=== PATIENT | male | born 1945 | race Caucasian/White ===

== ENCOUNTER 2018-11-16 15:33 | Emergency (ER) | payer MEDICARE, MEDICAID ==
--- NOTE | 2018-11-16 18:21 | ER Document Report ---
ED Medical Screen (RME) - General Chief Complaint: Palpitations Stated Complaint: HEARTRATE ISSUE, SHORTNESS OF BREATH Time Seen by Provider: 11/16/18 18:06 TRAVEL OUTSIDE OF THE [place] IN LAST 30 DAYS: No - Related Data Allergies/Adverse Reactions: No Known Allergies Allergy (Verified 11/16/18 15:35) Past Medical History - Social History Chew tobacco use (# tins/day): No Frequency of alcohol use: None Drug Abuse: None Renal/ Medical History: Denies: Hx Peritoneal Dialysis Physical Exam - Vital signs Vitals: Temp Pulse Resp BP Pulse Ox 97.8 F 92 20 134/70 H 93 11/16/18 15:54 11/16/18 15:54 11/16/18 15:54 11/16/18 15:54 11/16/18 15:54 Course - Re-evaluation Re-evalutation: 11/16/18 18:21 73-year-old man who presents with history of COPD persistent cough and some chest tightness which is worsened over the last 2 days. I have seen and evaluated this patient in rapid medical exam. They will require reassessment potentially further diagnostics and a disposition determination from a secondary provider. - Vital Signs Vital signs: Temp Pulse Resp BP Pulse Ox 97.8 F 92 19 154/89 H 94 11/16/18 15:54 11/16/18 15:54 11/16/18 20:01 11/16/18 20:01 11/16/18 20:01 - Laboratory Result Diagrams: 11/16/18 18:24 11/16/18 18:24 Laboratory results interpreted by me: 11/16/18 11/16/18 18:24 18:24 WBC 14.6 H Seg Neutrophils % 78.6 H Absolute Neutrophils 11.5 H AST 13 L ALT 14 L Creatine Kinase 32 L Doctor's Discharge - Discharge Clinical Impression: COPD (chronic obstructive pulmonary disease), Shortness of breath on exertion, Dependence on supplemental oxygen Condition: Stable Disposition: HOME, SELF-CARE Additional Instructions: You were seen for a COPD exacerbation. As we discussed, you need to begin wearing oxygen 3 L at all times. However, it is very important that you return to the emergency department immediately if you began to have worsening difficulty breathing that does not respond to your normal home nebulizers. You are also being sent home on a five-day course of steroids that you should start taking tomorrow. Please also follow closely with your primary care physician. You should eturn to emergency department if you develop fever greater than 101, persistent cough, persistent vomiting, pass out, or any other symptoms that are concerning to you. Prescriptions: Prednisone [Deltasone 20 mg Tablet] 2 tab PO DAILY 5 Days tablet
[2018-11-16 18:33] LABS: ABSOLUTE EOSINOPHILS # (AUTO) 0.2 10^3/uL (0.0-0.6); ABSOLUTE LYMPHOCYTES (AUTO) 2.2 10^3/uL (0.5-4.7); ABSOLUTE MONOCYTES (AUTO) 0.7 10^3/uL (0.1-1.4); ABSOLUTE NEUT (AUTO) 11.5 10^3/uL (1.7-8.2); BASOPHILS % (AUTO) 0.2 % (0-2); EOSINOPHILS % (AUTO) 1.4 % (0-6); LYMPHOCYTES % (AUTO) 14.7 % (13-45); MEAN CORPUSCULAR HEMOGLOBIN 29.5 pg (27.0-33.4); MEAN CORPUSCULAR VOLUME 87 fl (80-97); MONOCYTES % (AUTO) 5.1 % (3-13); PLATELET COUNT 233 10^3/uL (150-450); RED BLOOD COUNT 5.06 10^6/uL (4.35-5.55); RED CELL DISTRIBUTION WIDTH 13.5 % (11.5-14.0); SEGMENTED NEUTROPHILS % (AUTO) 78.6 % (42-78); TOTAL CELLS COUNTED % (AUTO) 100 %; WHITE BLOOD COUNT 14.6 10^3/uL (4.0-10.5)
[2018-11-16 18:50] LABS: ALANINE AMINOTRANSFERASE 14 U/L (21-72); ALBUMIN 4.4 g/dL (3.5-5.0); ALKALINE PHOSPHATASE 95 U/L (38-126); ANION GAP 13 (5-19); ASPARTATE AMINO TRANSFERASE 13 U/L (17-59); BILIRUBIN,DIRECT 0.3 mg/dL (0.0-0.4); BILIRUBIN,TOTAL 0.8 mg/dL (0.2-1.3); BLOOD UREA NITROGEN 16 mg/dL (7-20); CALCIUM 9.7 mg/dL (8.4-10.2); CARBON DIOXIDE 25 mmol/L (22-30); CHLORIDE 105 mmol/L (98-107); CREATINE KINASE 32 U/L (55-170); GLUCOSE 101 mg/dL (75-110); POTASSIUM 4.7 mmol/L (3.6-5.0); SODIUM 142.6 mmol/L (137-145); TOTAL PROTEIN 7.2 g/dL (6.3-8.2)
--- NOTE | 2018-11-16 18:58 | RADIOLOGY REPORT (SQ) ---
EXAM DESCRIPTION: CHEST SINGLE VIEW COMPLETED DATE/TIME: 11/16/2018 6:33 pm REASON FOR STUDY: cough COMPARISON: None. EXAM PARAMETERS: NUMBER OF VIEWS: One view. TECHNIQUE: Single frontal radiographic view of the chest acquired. RADIATION DOSE: NA LIMITATIONS: None. FINDINGS: LUNGS AND PLEURA: No pneumothorax. Coarse interstitial markings throughout both lungs wit h medial basilar predominance. No dense consolidation. No pleural effusion. MEDIASTINUM AND HILAR STRUCTURES: Calcified lymph nodes. Contour age-appropriate. HEART AND VASCULAR STRUCTURES: Heart normal in size. Normal vasculature. BONES: No acute findings. HARDWARE: None in the chest. OTHER: No other significant finding. IMPRESSION: Coarse interstitial markings throughout both lungs with medial basilar predominance, lik jack chronic. No dense consolidation. No pleural effusion. TECHNICAL DOCUMENTATION: JOB ID: [id number] 2010 [employer]- All Rights Reserved Reading location - IP/workstation name: [email or web address]
[2018-11-16 19:02] LABS: CREATINE KINASE MB 1.36 ng/mL (<4.55); TROPONIN I < 0.012 ng/mL
[2018-11-16 19:06] LABS: A TYPE INFLUENZA AG NEGATIVE (NEGATIVE); B INFLUENZA AG NEGATIVE (NEGATIVE)
[2018-11-16] MEDS ORDERED: RINGERS SOLUTION,LACTATED 1,000 ML IV ONE (20:34)
[2018-11-16] MEDS ORDERED: PREDNISONE 20 MG TABLET PO ONE (20:34)
[2018-11-16] MEDS ORDERED: IPRATROPIUM/ALBUTEROL 0.5-2.5 MG/3 ML AMPUL NEB ONE (20:35)
--- NOTE | 2018-11-16 20:40 | ER Document Report ---
ED General - General Chief Complaint: Palpitations Stated Complaint: HEARTRATE ISSUE, SHORTNESS OF BREATH Time Seen by Provider: 11/16/18 18:06 Notes: Patient is a 73-year-old male with a past medical history of COPD with nighttime oxygen dependence, hypertension, presents with several months of progressively worsening shortness of breath with exertion that has become much more pronounced over the past several weeks. The patient states that he became concerned today when he fell he became extremely winded when just walking to the restroom and back. He does not normally use oxygen during the day. States that he checked his heart rate after getting back to the couch and found it to be 107 prompting him to come to the emergency department. He does not have a local primary care doctor as he normally resides in [place]. He denies any associated chest pain, syncope, or hemoptysis. Nothing seems to improve his symptoms. He has been taking all prescribed medications as directed. TRAVEL OUTSIDE OF THE [place] IN LAST 30 DAYS: No - Related Data Allergies/Adverse Reactions: No Known Allergies Allergy (Verified 11/16/18 15:35) Past Medical History - General Information source: Patient, Relative - Social History Smoking Status: Former Smoker Chew tobacco use (# tins/day): No Frequency of alcohol use: None Drug Abuse: None Lives with: Family Family History: Reviewed & Not Pertinent Patient has suicidal ideation: No Patient has homicidal ideation: No Renal/ Medical History: Denies: Hx Peritoneal Dialysis Review of Systems - Review of Systems Notes: Constitutional: Negative for fever. HENT: Negative for sore throat. Eyes: Negative for visual changes. Cardiovascular: Negative for chest pain. Respiratory: Positive for shortness of breath. Gastrointestinal: Negative for abdominal pain, vomiting or diarrhea. Genitourinary: Negative for dysuria. Musculoskeletal: Negative for back pain. Skin: Negative for rash. Neurological: Negative for headaches, weakness or numbness. 10 point ROS negative except as marked above and in HPI. Physical Exam - Vital signs Vitals: Temp Pulse Resp BP Pulse Ox 97.8 F 92 20 134/70 H 93 11/16/18 15:54 11/16/18 15:54 11/16/18 15:54 11/16/18 15:54 11/16/18 15:54 Interpretation: Normal Notes: PHYSICAL EXAMINATION: GENERAL: Appears stated age, no acute distress HEAD: Atraumatic, normocephalic. EYES: Pupils equal round and reactive to light, extraocular movements intact, sclera anicteric, conjunctiva are normal. ENT: nares patent, oropharynx clear without exudates. Moist mucous membranes. NECK: Normal range of motion, supple without lymphadenopathy LUNGS: Breath sounds clear to auscultation bilaterally and equal. Scattered wheezing in all lung manuel. HEART: Regular rate and rhythm without murmurs ABDOMEN: Soft, nontender, normoactive bowel sounds. No guarding, no rebound. No masses appreciated. EXTREMITIES: Normal range of motion, no pitting or edema. No cyanosis. NEUROLOGICAL: No focal neurological deficits. Moves all extremities spontaneously and on command. PSYCH: Normal mood, normal affect. SKIN: Warm, Dry, normal turgor, no rashes or lesions noted. Course - Re-evaluation Re-evalutation: 11/16/18 20:35 Patient presents with 6 months of progressively worsening exertional intolerance worse in the last 1 month. Patient's main concern today was that his heart rate was high on a home pulse monitor after walking approximately 20 feet to use the restroom. Patient states just walking that short of a distance had some extremely fatigued, feeling short of breath and often raises his heart rate substantially. Patient does report that this is been ongoing for at least 6 months but has been getting much worse over the last 6 weeks. Nothing is substantially different today other than that he had checked his heart rate and noticed that when it was higher after exerting himself. The patient does n ormally use 2 L of oxygen at nighttime although here in the emergency department sitting in the bed with a good read on pulse oximetry the patient is 87-88% while sitting in the bed not doing anything. When the patient sits up in the bed to adjust himself for long examination he becomes visibly more tachypneic even with that mild exertion on room air. When I placed the patient on 3 L of nasal cannula the symptoms did resolve and patient's mild tachycardia of approximately 101 did likewise resolved. I suspect that the patient has more advanced COPD than he realized, and likely requires oxygen at all times at this point in his disease course. Patient and his son likewise agree stating that his symptoms are chronic in nature but he is currently new to the area and they did not have an alternative source of care today. The patient does have very mild wheezing at time of presentation. No retractions. Chest x-ray without evidence of an acute pneumonia, does show chronic changes. Laboratories do not show acute kidney injury or significant leukocytosis. Based on patient's overall reassuring assessment, I believe they are stable for outpatient management with steroids and have also advised him to begin wearing oxygen at all times. Patient has nebulizers at home. I do not suspect an acute alternative pathology at this time based on history and exam including acute pulmonary embolus, ACS, pneumothorax, or aortic dissection. I have advised the patient and his son that I do suspect that his illness has progressed significantly over the past 1 year but that I do not see an immediate indication for hospitalization. At this time will discharge with return precautions and follow-up recommendations. Verbal discharge instructions given a the bedside and opportunity for questions given. Medication warnings reviewed. Patient is in agreement with this plan and has verbalized understanding of return precautions and the need for primary care follow-up in the next 24-72 hours. \ - Vital Signs Vital signs: Temp Pulse Resp BP Pulse Ox 98.1 F 92 20 173/92 H 91 L 11/16/18 21:50 11/16/18 15:54 11/16/18 21:42 11/16/18 21:42 11/16/18 21:42 - Laboratory Result Diagrams: 11/16/18 18:24 11/16/18 18:24 Laboratory results interpreted by me: 11/16/18 11/16/18 18:24 18:24 WBC 14.6 H Seg Neutrophils % 78.6 H Absolute Neutrophils 11.5 H AST 13 L ALT 14 L Creatine Kinase 32 L - Diagnostic Test Radiology reviewed: Image reviewed, Reports reviewed Radiology results interpreted by me: 11/16/18 20:38 Chest x-ray: Chronic interstitial changes - EKG Interpretation by Me Additional EKG results interpreted by me: 11/16/18 20:38 Sinus rhythm, rate 94. Intermittent PVCs. No ST elevations or depressions. QTC 496. Discharge - Discharge Clinical Impression: Shortness of breath on exertion, Dependence on supplemental oxygen COPD (chronic obstructive pulmonary disease) Qualifiers: COPD type: unspecified COPD Qualified Code(s): J44.9 - Chronic obstructive pulmonary disease, unspecified Condition: Stable Disposition: HOME, SELF-CARE Additional Instructions: You were seen for a COPD exacerbation. As we discussed, you need to begin wearing oxygen 3 L at all times. However, it is very important that you return to the emergency department immediately if you began to have worsening diff iculty breathing that does not respond to your normal home nebulizers. You are also being sent home on a five-day course of steroids that you should start taking tomorrow. Please also follow closely with your primary care physician. You should eturn to emergency department if you develop fever greater than 101, persistent cough, persistent vomiting, pass out, or any other symptoms that are concerning to you. Prescriptions: Prednisone [Deltasone 20 mg Tablet] 2 tab PO DAILY 5 Days tablet
[2018-11-16 21:50] VITALS: BP 173/92
--- NOTE | 2018-11-17 08:20 | EKG REPORT ---
SEVERITY:- ABNORMAL ECG - SINUS RHYTHM VENTRICULAR PREMATURE COMPLEX RBBB AND LPFB : Confirmed by: Ava Pang MD 17-Nov-2018 08:19:53
== END 2018-11-16 21:51 | disposition home or self-care (01) ==
LOC: ER 15:33
DX: R00.2 Palpitations (principal); R06.02 Shortness of breath; J44.9 Chronic obstructive pulmonary disease, unspecified; Z99.81 Dependence on supplemental oxygen
CPT/HCPCS: 93005; 94640; 99285; 96360; 36415; 82553; 82550; 85025; 80053; 84484; 87804; 71045; 93010; A9270 ×2; J7120; J7512; J7620

== ENCOUNTER → 2018-11-24 | Outpatient (CLI) | payer MEDICARE, MEDICAID ==
--- NOTE | 2018-11-24 14:57 | RADIOLOGY REPORT (SQ) ---
EXAM DESCRIPTION: CHEST 2 VIEWS COMPLETED DATE/TIME: 11/24/2018 2:24 pm REASON FOR STUDY: R06.02 SHORTNESS OF BREATH COMPARISON: 11/16/2018 EXAM PARAMETERS: NUMBER OF VIEWS: two views TECHNIQUE: Digital Frontal and Lateral radiographic views of the chest acquired. RADIATION DOSE: NA LIMITATIONS: none FINDINGS: LUNGS AND PLEURA: Pulmonary fibrosis. No acute infiltrate or pleural effusion. No mass. MEDIASTINUM AND HILAR STRUCTURES: No masses or contour abnormalities. HEART AND VASCULAR STRUCTURES: Heart normal size. No evidence for failure. BONES: No acute findings. HARDWARE: None in the chest. OTHER: No other significant finding. IMPRESSION: Pulmonary fibrosis. TECHNICAL DOCUMENTATION: JOB ID: [id number] [employer]- All Rights Reserved Reading location - IP/workstation name: [email or web address]
== END ==
LOC: RAD 14:06
PROVIDERS: ATTEND Internal Medicine
DX: J84.10 Pulmonary fibrosis, unspecified (principal); R06.02 Shortness of breath; R09.89 Other specified symptoms and signs involving the circulatory and respiratory systems
CPT/HCPCS: 71046

== ENCOUNTER 2020-01-28 17:03 | Emergency (ER) | payer OTHER, MEDICAID ==
[2020-01-28 17:33] LABS: ABSOLUTE LYMPHOCYTES (AUTO) 1.1 10^3/uL (0.5-4.7); ABSOLUTE MONOCYTES (AUTO) 0.6 10^3/uL (0.1-1.4); ABSOLUTE NEUT (AUTO) 8.3 10^3/uL (1.7-8.2); BASOPHILS % (AUTO) 0.1 % (0-2); EOSINOPHILS % (AUTO) 0.1 % (0-6); HEMATOCRIT 50.6 % (37.9-51.0); HEMOGLOBIN 16.4 g/dL (13.5-17.0); LYMPHOCYTES % (AUTO) 10.5 % (13-45); MEAN CORPUSCULAR HEMOGLOBIN 28.3 pg (27.0-33.4); MEAN CORPUSCULAR HGB CONC 32.3 g/dL (32.0-36.0); MEAN CORPUSCULAR VOLUME 87 fl (80-97); MONOCYTES % (AUTO) 6.2 % (3-13); PLATELET COUNT 186 10^3/uL (150-450); RED CELL DISTRIBUTION WIDTH 17.1 % (11.5-14.0); SEGMENTED NEUTROPHILS % (AUTO) 83.1 % (42-78); TOTAL CELLS COUNTED % (AUTO) 100 %
[2020-01-28 17:45] LABS: PROTHROMBIN TIME 13.2 SEC (11.4-15.4)
[2020-01-28 17:50] LABS: ALBUMIN 4.9 g/dL (3.5-5.0); ALKALINE PHOSPHATASE 114 U/L (38-126); ANION GAP 17 (5-19); ASPARTATE AMINO TRANSFERASE 31 U/L (17-59); BILIRUBIN,DIRECT 0.5 mg/dL (0.0-0.4); BILIRUBIN,TOTAL 0.9 mg/dL (0.2-1.3); BLOOD UREA NITROGEN 23 mg/dL (7-20); CALCIUM 9.6 mg/dL (8.4-10.2); CARBON DIOXIDE 22 mmol/L (22-30); CHLORIDE 102 mmol/L (98-107); GLUCOSE 102 mg/dL (75-110); POTASSIUM 5.1 mmol/L (3.6-5.0); TOTAL PROTEIN 8.6 g/dL (6.3-8.2)
--- NOTE | 2020-01-28 18:17 | RADIOLOGY REPORT (SQ) ---
EXAM DESCRIPTION: CHEST SINGLE VIEW COMPLETED DATE/TIME: 01/28/2020 5:54 pm REASON FOR STUDY: SOB COMPARISON: 11/24/2018 EXAM PARAMETERS: NUMBER OF VIEWS: One view. TECHNIQUE: Single frontal radiographic view of the chest acquired. RADIATION DOSE: NA LIMITATIONS: None. FINDINGS: LUNGS AND PLEURA: Chronic pulmonary fibrosis. No acute infiltrate. No pleural effusion. No mass is appreciated. MEDIASTINUM AND HILAR STRUCTURES: No masses. Contour normal. HEART AND VASCULAR STRUCTURES: Heart normal in size. Normal vasculature. BONES: No acute findings. HARDWARE: None in the chest. OTHER: No other significant finding. IMPRESSION: Pulmonary fibrosis. No acute finding. TECHNICAL DOCUMENTATION: JOB ID: [id number] 2010 [employer]- All Rights Reserved Reading location - IP/workstation name: [email or web address]
[2020-01-28 18:25] LABS: VENOUS BLOOD BASE EXCESS -2.4 mmol/L; VENOUS BLOOD HCO3 23.5 mmol/L (20-32); VENOUS BLOOD PCO2 44.3 mmHg (35-63); VENOUS BLOOD PH 7.34 (7.30-7.42)
[2020-01-28 18:56] LABS: A TYPE INFLUENZA AG NEGATIVE (NEGATIVE); B INFLUENZA AG NEGATIVE (NEGATIVE)
[2020-01-28] MEDS ORDERED: METHYLPREDNISOLONE INJ 125 MG/2 ML SDV IV ONE (20:37)
[2020-01-28] MEDS ORDERED: CEFTRIAXONE 1 GM/D5W RTU 1 GM/50 ML RTUPB IV ONE (20:37)
[2020-01-28] MEDS ORDERED: ACETAMINOPHEN 325 MG TABLET PO ONE (21:21)
[2020-01-28 21:34] LABS: APPEARANCE,URINE CLEAR; BILIRUBIN,URINE NEGATIVE (NEGATIVE); COLOR,URINE YELLOW; GLUCOSE, URINE NEGATIVE (NEGATIVE); KETONES,URINE 20 mg/dL (NEGATIVE); PROTEIN,URINE 30 mg/dL (NEGATIVE); URINE SPECIFIC GRAVITY 1.012; UROBILINOGEN,URINE NEGATIVE mg/dL (<2.0)
--- NOTE | 2020-01-28 21:47 | EKG REPORT ---
SEVERITY:- ABNORMAL ECG - SINUS RHYTHM RBBB AND LPFB ST DEPRESSION, CONSIDER ISCHEMIA, DIFFUSE LDS : Confirmed by: Ava Pang MD 28-Jan-2020 21:46:14
--- NOTE | 2020-01-28 22:48 | ER Document Report ---
Entered by RICKY MANCIA SCRIBE 01/28/202128 Acting as scribe for:TING SUAZO DO ED General - General Chief Complaint: Shortness Of Breath Stated Complaint: RESPIRATORY DISTRESS Time Seen by Provider: 01/28/20 19:38 Primary Care Provider: DUNCAN AYALA MD [ACTIVE STAFF] - Follow up as needed ЕКАТЕРИНА RIGGS MD [Primary Care Provider] - Follow up as needed Information source: Patient Notes: This 75-year-old male with a history of COPD and diabetes presents to the emergency department complaining of increased shortness of breath that began 2-3 days ago. Patient lives alone and has noticed a difficulty in walking around his home. Patient reports feeling "achy" for the past week and headache. Patient denies fever, nausea, vomiting and chest pain. Patient denies sick contact. Patient is on oxygen at home 06/06. TRAVEL OUTSIDE OF THE [place] IN LAST 30 DAYS: No - Related Data Allergies/Adverse Reactions: No Known Allergies Allergy (Verified 11/16/18 15:35) Past Medical History - General Information source: Patient - Social History Smoking Status: Former Smoker Cigarette use (# per day): No Chew tobacco use (# tins/day): No Drug Abuse: Marijuana Lives with: Alone Family History: Reviewed & Not Pertinent Patient has suicidal ideation: No Patient has homicidal ideation: No Pulmonary Medical History: Reports: Hx COPD Endocrine Medical History: Reports: Hx Diabetes Mellitus Type 1 Surgical Hx: Negative Review of Systems - Review of Systems Constitutional: See HPI. denies: Fever EENT: No symptoms reported Cardiovascular: See HPI. denies: Chest pain Respiratory: See HPI, Short of breath Gastrointestinal: See HPI. denies: Nausea, Vomiting Genitourinary: No symptoms reported Male Genitourinary: No symptoms reported Musculoskeletal: See HPI, Muscle pain Skin: No symptoms reported Hematologic/Lymphatic: No symptoms reported Neurological/Psychological: See HPI, Headaches -: Yes All other systems reviewed and negative Physical Exam - Vital signs Vitals: Pulse Ox 96 01/28/20 17:04 - Notes Notes: Physical Exam: General: Alert, appears stated age. HEENT: Normocephalic. Atraumatic. PERRL. Extraocular movements intact. Oropharynx clear. Neck: Supple. Non-tender. Respiratory: No respiratory distress. Diminished breath sounds bilaterally. No r honchi, rales or wheezing. Cardiovascular: Regular rate and rhythm. Abdominal: Non-tender. No distension. Normal Bowel Sounds. Obese. Back: No gross abnormalities. Extremities: Moves all four extremities. Upper extremities: Normal inspection. Normal ROM. Lower extremities: Normal inspection. No edema. Normal ROM. Neurological: Normal cognition. AAOx4. Normal speech. Psychological: Normal affect. Normal Mood. Skin: Warm. Dry. Normal color. Course - Re-evaluation Re-evalutation: 01/28/20 22:42 MDM Elderly male lives alone but has friends nearby is here with SOB with exertion that is better here. He has known COPD and Xrays are suggestive of Pulmonary fibrosis. He has never before today reportedly heard of that. I discussed with him that pulmonary fibrosis is a restrictive lung disease that usually has progressive disease. He will need to see his primary doctor regarding this and perhaps a pulmonary doctor. We also discussed return precautions which include calling EMS for shortness of breath or chest pain and he expressed understanding. While I have considered other causes of his dyspnea including pe and cap and covid I see no evidence of this for the following thoughts. No tachynpnea or tachycardia or h/o hypercoaguable state, also fever free and no elevated WBC count. He does tell me he feels better here. Clearly the EKG is not normal but without evidence of change or ischemia on my view. Once he is over the exacerbation I feel he should see the cardiology team in follow up. He expressed understanding regarding this. - Vital Signs Vital signs: Temp Pulse Resp BP Pulse Ox 97.9 F 16 173/109 H 93 01/28/20 21:07 01/28/20 19:01 01/28/20 19:00 01/28/20 19:01 - Laboratory Result Diagrams: 01/28/20 17:15 01/28/20 17:15 Laboratory results interpreted by me: 01/28/20 01/28/20 01/28/20 17:15 17:15 21:15 RBC 5.80 H RDW 17.1 H Lymph % (Auto) 10.5 L Absolute Neuts (auto) 8.3 H Seg Neutrophils % 83.1 H Potassium 5.1 H BUN 23 H Est GFR (MDRD) Non-Af 56 L Direct Bilirubin 0.5 H ALT 54 H Total Protein 8.6 H Urine Protein 30 H Urine Ketones 20 H - Diagnostic Test Radiology reviewed: Image reviewed, Reports reviewed - EKG Interpretation by Me EKG shows normal: Sinus rhythm Rhythm: NSR [place]/QRS: RBBB, LAHB/LAFB - NSR RBBB 84 BPM repolarization abnormality. no st elevation or depression my interpretation. When compared to previous EKG there are: No significant change Discharge - Discharge Clinical Impression: COPD with exacerbation, Pulmonary fibrosis Chronic respiratory failure Qualifiers: Respiratory failure complication: hypoxia Qualified Code(s): J96.11 - Chronic respiratory failure with hypoxia Condition: Fair Disposition: HOME, SELF-CARE Instructions: Chronic Obstructive Lung Disease ([facility]), Cough Suppressant & Expectorant Medications, Dyspnea, Nonspecific ([facility]) Additional Instructions: Call your doctor tomorrow for follow up. Rest. Return here for increasing shortness of breath, chest pain or other problems or concerns. Take your medic ine as directed. Forms: Elevated Blood Pressure Referrals: ЕКАТЕРИНА RIGGS MD [Primary Care Provider] - Follow up as needed DUNCAN AYALA MD [ACTIVE STAFF] - Follow up as needed I personally performed the services described in the documentation, reviewed and edited the documentation which was dictated to the scribe in my presence, and it accurately records my words and actions.
[2020-01-29 00:14] VITALS: BP 161/102
== END 2020-01-29 00:10 | disposition home or self-care (01) ==
LOC: ER 17:03
DX: J44.1 Chronic obstructive pulmonary disease with (acute) exacerbation (principal); J96.11 Chronic respiratory failure with hypoxia; J84.10 Pulmonary fibrosis, unspecified; R51 Headache; I45.2 Bifascicular block; E10.9 Type 1 diabetes mellitus without complications; Z99.81 Dependence on supplemental oxygen; F12.10 Cannabis abuse, uncomplicated; Z87.891 Personal history of nicotine dependence
CPT/HCPCS: 93005; 99285; 96375; 96365; 36415; 87040; 83605; 85025; 85610; 87077; 80053; 81001; 84484; 82803; 87804; 71045; 93010; J2930; J0696; 87186

== ENCOUNTER 2020-03-05 10:20 | Emergency (ER) | payer MEDICARE, MEDICAID ==
[2020-03-05 10:48] LABS: ABSOLUTE BASOPHILS # (AUTO) 0.1 10^3/uL (0.0-0.2); ABSOLUTE EOSINOPHILS # (AUTO) 0.2 10^3/uL (0.0-0.6); ABSOLUTE LYMPHOCYTES (AUTO) 1.7 10^3/uL (0.5-4.7); ABSOLUTE MONOCYTES (AUTO) 0.5 10^3/uL (0.1-1.4); ABSOLUTE NEUT (AUTO) 7.8 10^3/uL (1.7-8.2); BASOPHILS % (AUTO) 0.5 % (0-2); EOSINOPHILS % (AUTO) 2.2 % (0-6); HEMATOCRIT 50.4 % (37.9-51.0); HEMOGLOBIN 16.3 g/dL (13.5-17.0); LYMPHOCYTES % (AUTO) 16.2 % (13-45); MEAN CORPUSCULAR HEMOGLOBIN 27.7 pg (27.0-33.4); MEAN CORPUSCULAR HGB CONC 32.4 g/dL (32.0-36.0); MEAN CORPUSCULAR VOLUME 85 fl (80-97); MONOCYTES % (AUTO) 4.9 % (3-13); PLATELET COUNT 259 10^3/uL (150-450); RED BLOOD COUNT 5.91 10^6/uL (4.35-5.55); RED CELL DISTRIBUTION WIDTH 16.3 % (11.5-14.0); SEGMENTED NEUTROPHILS % (AUTO) 76.2 % (42-78); TOTAL CELLS COUNTED % (AUTO) 100 %; WHITE BLOOD COUNT 10.3 10^3/uL (4.0-10.5)
[2020-03-05 11:06] LABS: ALBUMIN 4.7 g/dL (3.5-5.0); ALKALINE PHOSPHATASE 135 U/L (38-126); ANION GAP 8 (5-19); ASPARTATE AMINO TRANSFERASE 19 U/L (17-59); BILIRUBIN,TOTAL 0.7 mg/dL (0.2-1.3); BLOOD UREA NITROGEN 20 mg/dL (7-20); CALCIUM 9.8 mg/dL (8.4-10.2); CARBON DIOXIDE 29 mmol/L (22-30); CHLORIDE 102 mmol/L (98-107); GLUCOSE 109 mg/dL (75-110); TOTAL PROTEIN 8.3 g/dL (6.3-8.2)
[2020-03-05] MEDS ORDERED: CEFTRIAXONE INJ 1000 MG VIAL IV ONE (11:36)
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
--- NOTE | 2020-03-05 11:40 | RADIOLOGY REPORT (SQ) ---
EXAM DESCRIPTION: CHEST SINGLE VIEW IMAGES COMPLETED DATE/TIME: 03/05/2020 11:26 am REASON FOR STUDY: hypoxic COMPARISON: 01/28/2020 EXAM PARAMETERS: NUMBER OF VIEWS: One view. TECHNIQUE: Single frontal radiographic view of the chest acquired. RADIATION DOSE: NA LIMITATIONS: None. FINDINGS: LUNGS AND PLEURA: Grossly stable bilateral peripheral predominant interstitial opacities a nd fibrosis. Nodes definitive superimposed airspace disease. Unchanged elevation of the right hemid iaphragm. No pleural effusion or pneumothorax. MEDIASTINUM AND HILAR STRUCTURES: Stable. HEART AND VASCULAR STRUCTURES: Borderline enlarged, stable. Vascular calcifications. BONES: No acute findings. HARDWARE: None in the chest. OTHER: No other significant finding. IMPRESSION: Grossly stable bilateral pulmonary fibrosis and scarring. No definitive superimposed ai rspace disease. TECHNICAL DOCUMENTATION: JOB ID: [id number] 2010 [employer]- All Rights Reserved Reading location - IP/workstation name: [email or web address]
[2020-03-05 13:06] VITALS: BP 175/133
--- NOTE | 2020-03-05 18:43 | EKG REPORT ---
SEVERITY:- ABNORMAL ECG - SINUS TACHYCARDIA MULTIPLE ATRIAL PREMATURE COMPLEXES PROBABLE LEFT ATRIAL ABNORMALITY RBBB AND LPFB ST DEPRESSION, CONSIDER ISCHEMIA, : Confirmed by: Teresa Lam 05-Mar-2020 18:43:01
== END 2020-03-05 13:06 | disposition home or self-care (01) ==
LOC: ER 10:20
DX: T20.20XA Burn of second degree of head, face, and neck, unspecified site, initial encounter (principal); R06.02 Shortness of breath; R51 Headache; R09.89 Other specified symptoms and signs involving the circulatory and respiratory systems; R04.0 Epistaxis; R22.0 Localized swelling, mass and lump, head; X08.8XXA Exposure to other specified smoke, fire and flames, initial encounter; Z99.81 Dependence on supplemental oxygen; F17.210 Nicotine dependence, cigarettes, uncomplicated; E10.9 Type 1 diabetes mellitus without complications; Z79.84 Long term (current) use of oral hypoglycemic drugs; I10 Essential (primary) hypertension; J44.9 Chronic obstructive pulmonary disease, unspecified
CPT/HCPCS: 93005; 99284; 96374; 36415; 85025; 80053; 71045; 93010; J0696

== ENCOUNTER 2020-04-05 14:17 | Inpatient (IN) | payer MEDICARE, MEDICAID ==
[2020-04-05 14:32] LABS: VENOUS BLOOD BASE EXCESS -4.9 mmol/L; VENOUS BLOOD HCO3 20.7 mmol/L (20-32); VENOUS BLOOD PCO2 40.6 mmHg (35-63); VENOUS BLOOD PH 7.33 (7.30-7.42)
[2020-04-05 14:34] LABS: ABSOLUTE EOSINOPHILS # (AUTO) 0.1 10^3/uL (0.0-0.6); ABSOLUTE LYMPHOCYTES (AUTO) 1.3 10^3/uL (0.5-4.7); ABSOLUTE MONOCYTES (AUTO) 0.3 10^3/uL (0.1-1.4); ABSOLUTE NEUT (AUTO) 4.1 10^3/uL (1.7-8.2); BASOPHILS % (AUTO) 0.2 % (0-2); HEMATOCRIT 39.5 % (37.9-51.0); HEMOGLOBIN 12.8 g/dL (13.5-17.0); LYMPHOCYTES % (AUTO) 21.7 % (13-45); MEAN CORPUSCULAR HEMOGLOBIN 27.8 pg (27.0-33.4); MEAN CORPUSCULAR HGB CONC 32.3 g/dL (32.0-36.0); MEAN CORPUSCULAR VOLUME 86 fl (80-97); MONOCYTES % (AUTO) 5.6 % (3-13); PLATELET COUNT 118 10^3/uL (150-450); RED BLOOD COUNT 4.59 10^6/uL (4.35-5.55); RED CELL DISTRIBUTION WIDTH 17.7 % (11.5-14.0); SEGMENTED NEUTROPHILS % (AUTO) 70.5 % (42-78); TOTAL CELLS COUNTED % (AUTO) 100 %; WHITE BLOOD COUNT 5.8 10^3/uL (4.0-10.5)
[2020-04-05 14:38] LABS: INTERNATIONAL RATION (INR) 1.05; PROTHROMBIN TIME 13.7 SEC (11.4-15.4)
[2020-04-05] MEDS ORDERED: IPRATROPIUM/ALBUTEROL 0.5-2.5 MG/3 ML AMPUL NEB ONE (14:38)
[2020-04-05] MEDS ORDERED: METHYLPREDNISOLONE INJ 125 MG/2 ML SDV IV ONE (14:38)
--- NOTE | 2020-04-05 14:48 | ER Document Report ---
ED General - General Chief Complaint: Syncope Stated Complaint: SYNCOPE, DIFFICULTY BREATHING Time Seen by Provider: 04/05/20 14:27 Primary Care Provider: ЕКАТЕРИНА RIGGS MD [Primary Care Provider] - Follow up as needed Notes: Patient is a 75-year-old male who presents to the emergency department with a chief complaint of shortness of breath. Patient states that he started have shortness of breath about 3 days ago. Today got progressively worse. Patient's home is being treated for bedbugs. He was at a hotel room and his shortness of breath got progressively worse. Patient has history of COPD and he is normally on 4 L of oxygen. Patient states that he did have his oxygen. Patient states that he felt like he could not move when he had difficulty breathing. Denies any loss of consciousness. TRAVEL OUTSIDE OF THE [place] IN LAST 30 DAYS: No - Related Data Allergies/Adverse Reactions: No Known Allergies Allergy (Verified 03/05/20 10:58) Past Medical History - Social History Smoking Status: Former Smoker Chew tobacco use (# tins/day): No Frequency of alcohol use: None Drug Abuse: None Family History: Reviewed & Not Pertinent Patient has homicidal ideation: No - Past Medical History Cardiac Medical History: Reports: Hx Hypercholesterolemia, Hx Hypertension Pulmonary Medical History: Reports: Hx COPD Endocrine Medical History: Reports: Hx Diabetes Mellitus Type 1 Renal/ Medical History: Denies: Hx Peritoneal Dialysis Psychiatric Medical History: Reports: Hx Depression Review of Systems - Review of Systems Notes: REVIEW OF SYSTEMS: CONSTITUTIONAL : Denies recent illness. Denies recent unintentional weight loss. Denies fever, chills, or sweats. EENT: Denies eye, ear, throat, or mouth pain, discharge, or symptoms. Denies nasal or sinus congestion. CARDIOVASCULAR: Denies chest pain. RESPIRATORY: See HPI. GASTROINTESTINAL: Denies nausea, vomiting, and diarrhea. Denies abdominal pain. Denies constipation. GENITOURINARY: Denies difficulty urinating, burning, blood in urine, urgency or frequency. MUSCULOSKELETAL: Denies neck and back pain. Denies joint pain or swelling. SKIN: Denies rash, itchiness, or lesions HEMATOLOGIC : Denies easy bruising or bleeding. LYMPHATIC: Denies swollen, painful, enlarged glands. NEUROLOGICAL: See HPI. PSYCHIATRIC: Denies stress, anxiety, alteration in sleep patterns, or depression. All other systems reviewed and negative. Physical Exam - Vital signs Vitals: Temp Resp BP Pulse Ox 97.6 F 20 139/81 H 81 L 04/05/20 14:16 04/05/20 14:16 04/05/20 14:16 04/05/20 14:16 Course - Re-evaluation Re-evalutation: 04/05/20 14:48 Patient's oxygen saturation was 78 on 6 L nasal cannula. I called Dr. Aparicio to bedside to evaluate the patient. We switch the patient to a nonrebreather and his oxygen saturation came back up to 96. Patient is not tachypneic. Once we are able to get his oxygen saturation up, we switched him back to his cannula at 5 L. DuoNeb, magnesium, and Solu-Medrol ordered. 04/05/20 15:45 Hematology does not show a leukocytosis, but his hemoglobin is slightly low at 12.8. Chemistry shows sodium 136.8. His CO2 is 20. BUN 21. Patient will be sent for CT of the chest to rule out pulmonary emboli. Lactic acid is 5.2. He received Rocephin and azithromycin for antibiotics. Oxygen saturation is now 91 to 92% on simple mask. 04/05/20 17:08 CTA of the chest shows end-stage COPD and possible pneumonia. I spoke with Dr. Knowles, the hospitalist. Discussed the patient's case and he will be evaluated by Dr. Knowles and he will decide what level of care patient will go to. 04/05/20 18:[address] Knowles, the hospitalist. Patient will be admitted to [facility]. He will first be tested for COVID-19 and then he will go up to the floor. - Vital Signs Vital signs: Temp Pulse Resp BP Pulse Ox 97.6 F 20 119/75 89 L 04/05/20 14:17 04/05/20 16:24 04/05/20 16:24 04/05/20 16:24 - Laboratory Result Diagrams: 04/05/20 14:20 04/05/20 14:20 Laboratory results interpreted by me: 04/05/20 04/05/20 04/05/20 14:20 14:20 14:20 Hgb 12.8 L RDW 17.7 H Plt Count 118 L ABG pO2 ABG Total CO2 ABG O2 Saturation Sodium 136.8 L Carbon Dioxide 20 L BUN 21 H Est GFR (MDRD) Non-Af 56 L Glucose 130 H Lactic Acid 5.2 H NT-Pro-B Natriuret Pep Total Protein 6.1 L 04/05/20 04/05/20 04/05/20 14:20 14:42 16:30 Hgb RDW Plt Count ABG pO2 70.9 L ABG Total CO2 21.1 L ABG O2 Saturation 93.7 L Sodium Carbon Dioxide BUN Est GFR (MDRD) Non-Af Glucose Lactic Acid 2.4 H NT-Pro-B Natriuret Pep 7020 H Total Protein Critical Care Note - Critical Care Note Comments: Critical care time spent obtaining history from patient or surrogate, discussions with consultants, development of treatment plan with patient or surrogate, evaluation of patient's response to treatment, examination of patient, ordering and performing treatments and interventions, ordering and review of laboratory studies, re-evaluation of patient's condition, ordering and review of radiographic studies and review of old charts Discharge - Discharge Clinical Impression: Shortness of breath, COPD exacerbation Pneumonia Qualifiers: Pneumonia type: due to unspecified organism Laterality: unspecified laterality Lung location: unspecified part of lung Qualified Code(s): J18.9 - Pneumonia, u nspecified organism Condition: Stable Disposition: ADMITTED INPATIENT Admitting Provider: Eleni (Hospitalist) Unit Admitted: IMCU Referrals: ЕКАТЕРИНА RIGGS MD [Primary Care Provider] - Follow up as needed
[2020-04-05] MEDS: MAGNESIUM SULFATE/D5W 1 GM/100 ML RTUPB IV SCH ×2 (14:53→16:00)
--- NOTE | 2020-04-05 14:58 | RADIOLOGY REPORT (SQ) ---
EXAM DESCRIPTION: CHEST SINGLE VIEW IMAGES COMPLETED DATE/TIME: 04/05/2020 2:48 pm REASON FOR STUDY: Shortness of breath, syncope COMPARISON: 03/05/2020 and 01/28/2020. EXAM PARAMETERS: NUMBER OF VIEWS: One view. TECHNIQUE: Single frontal radiographic view of the chest acquired. RADIATION DOSE: NA LIMITATIONS: None. FINDINGS: LUNGS AND PLEURA: Chronic pulmonary fibrosis. No opacities, masses or pneumothorax. No pl eural effusion. MEDIASTINUM AND HILAR STRUCTURES: No masses. Contour normal. HEART AND VASCULAR STRUCTURES: Heart normal in size. Normal vasculature. BONES: No acute findings. HARDWARE: None in the chest. OTHER: No other significant finding. IMPRESSION: CHRONIC PULMONARY FIBROSIS. NO SIGNIFICANT CHANGE. NO APPARENT ACUTE FINDINGS. TECHNICAL DOCUMENTATION: JOB ID: [id number] [employer]- All Rights Reserved Reading location - IP/workstation name: [email or web address]
[2020-04-05 15:01] LABS: ALBUMIN 3.5 g/dL (3.5-5.0); ALKALINE PHOSPHATASE 80 U/L (38-126); ANION GAP 14 (5-19); ASPARTATE AMINO TRANSFERASE 21 U/L (17-59); BILIRUBIN,TOTAL 0.5 mg/dL (0.2-1.3); BLOOD UREA NITROGEN 21 mg/dL (7-20); CALCIUM 8.6 mg/dL (8.4-10.2); CARBON DIOXIDE 20 mmol/L (22-30); CHLORIDE 103 mmol/L (98-107); GLUCOSE 130 mg/dL (75-110); POTASSIUM 4.7 mmol/L (3.6-5.0); TOTAL PROTEIN 6.1 g/dL (6.3-8.2)
[2020-04-05 15:06] LABS: ARTERIAL BLOOD H2CO3 1.11 mmol/L (1.05-1.35); ARTERIAL BLOOD O2 SATURATION 93.7 % (94-98); ARTERIAL BLOOD PCO2 36.8 mmHg (35-45); ARTERIAL BLOOD PH 7.35 (7.35-7.45); ARTERIAL BLOOD PO2 70.9 mmHg (80-100); ARTERIAL BLOOD TOTAL CO2 21.1 mmol/L (23-27)
[2020-04-05 15:07] LABS: ARTERIAL BLOOD FIO2 15L
[2020-04-05] MEDS ORDERED: AZITHROMYCIN INJ 500 MG VIAL IV ONE (15:11)
[2020-04-05] MEDS ORDERED: CEFTRIAXONE 1 GM/D5W RTU 1 GM/50 ML RTUPB IV ONE (15:30)
--- NOTE | 2020-04-05 16:35 | RADIOLOGY REPORT (SQ) ---
EXAM DESCRIPTION: CTA CHEST IMAGES COMPLETED DATE/TIME: 04/05/2020 4:21 pm REASON FOR STUDY: shortness of breath; low O2 saturation COMPARISON: Chest films 04/05/2020, 03/05/2020, 01/28/2020 TECHNIQUE: CT scan of the chest performed using helical scanning technique with dynamic intravenous contrast injection. Images reviewed with lung, soft tissue and bone windows. Reconstructed coronal and sagittal MPR images reviewed. Additional 3 dimensional post-processing performed to develop Maximal Intensity Projection images (CA P). All images stored on PACS. All CT scanners at this facility use dose modulation, iterative reconstruction, and/or weight based d osing when appropriate to reduce radiation dose to as low as reasonably achievable (ALARA). [facility]: Dose Right [facility]: CareDose [facility]: Dose Right [facility]: Teradose 4D [facility]: TELA Bio CONTRAST TYPE AND DOSE: contrast/concentration: Isovue 350.00 mg/ml; Total Contrast Delivered: 57.0 ml; Total Saline Delivered: 67.0 ml Contrast bolus adequate for pulmonary arteries and aorta. RENAL FUNCTION: Creatinine 1.3 RADIATION DOSE: CT Rad equipment meets quality standard of care and radiation dose reduction techniq ues were employed. CTDIvol: 3.3 - 19.8 mGy. DLP: 560 mGy-cm. . LIMITATIONS: None. FINDINGS: LUNGS AND PLEURA: End-stage appearance of obstructive lung disease and pulmonary fibrosis. In the posterior aspect left upper lobe axial image 62, a 5 cm area of dense lung consolidation is pr esent worrisome for pneumonia. This should be followed to radiographic clearing to exclude underlyin g mass. Similar findings are present 2 cm in diameter on image 57. No pleural effusions. No pneumothorax. AORTA AND GREAT VESSELS: No aneurysm. Contrast bolus not optimized for the aorta. HEART: No pericardial effusion. No significant coronary artery calcifications. PULMONARY ARTERIES: No emboli visualized in the main pulmonary arteries or the segmental branches. L arge central pulmonary arteries from pulmonary hypertension HILAR AND MEDIASTINAL STRUCTURES: No identified masses or abnormal nodes. HARDWARE: None in the chest. UPPER ABDOMEN: No significant findings. Limited exam. THYROID AND OTHER SOFT TISSUES: No masses. No adenopathy. BONES: No acute or significant finding. 3D MIPS: Confirm above findings. OTHER: No other significant finding. IMPRESSION: End-stage appearance of obstructive lung disease and pulmonary fibrosis 5 cm and 2 cm opacities in the left upper lobe, worrisome for acute pneumonia. The should be followe d to radiographic clearing, to exclude underlying mass No CT angio evidence of acute pulmonary emboli or thoracic aortic dissection COMMENT: Quality ID # [id number]: Final reports with documentation of one or more dose reduction techniques (e.g., Automated exposure control, adjustment of the mA and/or kV according to patient size, use of iterative reconstruction technique) TECHNICAL DOCUMENTATION: JOB ID: [id number] 2010 [employer]- All Rights Reserved Reading location - IP/workstation name: [email or web address]
[2020-04-05] MEDS ORDERED: GUAIFENESIN 600 MG TABLET.SA PO ONE (16:44)
[2020-04-05 16:49] LABS: TROPONIN I 0.016 ng/mL
--- NOTE | 2020-04-05 17:10 | EKG REPORT ---
SEVERITY:- ABNORMAL ECG - SINUS RHYTHM RBBB AND LPFB ST DEPRESSION, CONSIDER ISCHEMIA, INF LEADS : Confirmed by: Ava Pang MD 05-Apr-2020 17:09:52
[2020-04-05] MEDS ORDERED: ACETAMINOPHEN 325 MG TABLET PO PRN (18:11)
[2020-04-05] MEDS ORDERED: MAG HYDROX/AL HYDROX/SIMETH SUSP 30 ML UDCUP PO PRN (18:11)
[2020-04-05] MEDS ORDERED: DEXTROSE 40% GEL 15 GM TUBE PO PRN ×2 (18:30)
[2020-04-05] MEDS ORDERED: DEXTROSE 50%-WATER 25 GM/50 ML DISP.SYRIN IV PRN ×2 (18:30)
[2020-04-05] MEDS ORDERED: GLUCAGON,HUMAN RECOMB 1 MG INJ IM PRN (18:30)
--- NOTE | 2020-04-05 18:42 | PDOC H&P ---
History of Present Illness Admission Date/PCP: ЕКАТЕРИНА RIGGS MD Patient complains of: Shortness of breath History of Present Illness: VISHNU CARDENAS is a 75 year old male with a history of advanced Sema on 4 L nasal cannula, chronic interstitial lung disease, hypertension, presents to the hospital with complaints of shortness of breath. Patient states that he was staying at a motel because his house is being decontaminated for bugs. While at the hotel when he got up to ambulate he felt very short of breath. Stated that he noticed his oxygen level drop on his pulse oximeter into the 60s while on 4 L nasal cannula at which point he increase his oxygen and he came back up to 90%. States he has been having increased shortness of breath especially with a mbulation for the past few weeks now. Patient denies any chest pain any fever or chills. Denies any sick exposures. In the ER patient was noted to be hypoxic on 4 L nasal cannula on initial presentation. According to ER provider patient was wheezing at the time. Patient was treated with breathing treatments and later placed on a simple facemask with improvement of his pulse oximetry. Past Medical History Cardiac Medical History: Reports: Hyperlipidema, Hypertension Pulmonary Medical History: Reports: Chronic Obstructive Pulmonary Disease (COPD), Other - Interstitial lung disease Endocrine Medical History: Reports: Diabetes Mellitus Type 2 Psychiatric Medical History: Reports: Depression Past Surgical History Past Surgical History: Reports: Other Social History Smoking Status: Former Smoker Electronic Cigarette use?: No Frequency of Alcohol Use: None Hx Recreational Drug Use: Yes - History of cocaine abuse in the past but has stopped long time ago. Drugs: Marijuana - Advance Directive Resuscitation Status: Do Not Resuscitate - DNR/DNI Family History Family History: Other - A. fib in sibling and heart disease in parents. Parental Family History Reviewed: Yes Children Family History Reviewed: Unknown Sibling(s) Family History Reviewed.: Yes Medication/Allergy Home Medications: Prednisone [Deltasone 20 mg Tablet] 2 tab PO DAILY 5 Days tablet 11/16/18 Albuterol Sulfate [Proair HFA Inhalation Aerosol 8.5 gm MDI] 2 puff IH Q4H PRN #1 mdi 01/28/20 Benzonatate [Tessalon Perles 100 mg Capsule] 200 mg PO Q8HP PRN #40 capsule 01/28/20 Prednisone 10 mg PO DAILY #21 tablet 01/28/20 Sulfamethoxazole/Trimethoprim [Bactrim Ds Tablet] 1 tab PO BID #20 tablet 03/05/20 Allergies/Adverse Reactions: No Known Allergies Allergy (Verified 03/05/20 10:58) Review of Systems Constitutional: PRESENT: fatigue. ABSENT: chills, fever(s) Eyes: ABSENT: visual disturbances Nose, Mouth, and Throat: ABSENT: headache(s) Cardiovascular: PRESENT: dyspnea on exertion. ABSENT: chest pain Respiratory: PRESENT: cough, dyspnea. ABSENT: sputum Gastrointestinal: ABSENT: abdominal pain, nausea, vomiting Genitourinary: ABSENT: dysuria Integumentary: ABSENT: diaphoresis Neurological: PRESENT: dizziness - Occasionally when ambulating. Feels it is associated with his shortness of breath.. ABSENT: confusion Endocrine: ABSENT: polyuria Hematologic/Lymphatic: PRESENT: easy bruising Allergic/Immunologic: PRESENT: other - Rhinorrhea Physical Exam Vital Signs: Temp Pulse Resp BP Pulse Ox 97.6 F 20 119/75 89 L 04/05/20 14:17 04/05/20 16:24 04/05/20 16:24 04/05/20 16:24 Intake & Output 04/04/20 04/05/20 04/06/20 06:59 06:59 06:59 Intake Total 250 Balance 250 Weight 74.843 kg General appearance: PRESENT: no acute distress, cooperative, thin Head exam: PRESENT: normocephalic Mouth exam: PRESENT: neck supple Neck exam: ABSENT: JVD Respiratory exam: PRESENT: crackles - Dry rales, decreased breath sounds, unlabo red. ABSENT: tachypnea, wheezes Cardiovascular exam: PRESENT: RRR, +S1, +S2. ABSENT: tachycardia GI/Abdominal exam: PRESENT: hernia, soft, tenderness - Mildly. ABSENT: distended, firm, guarding, rebound, rigid Extremities exam: ABSENT: pedal edema Neurological exam: PRESENT: alert, awake, oriented to person, oriented to place, oriented to time, oriented to situation Psychiatric exam: ABSENT: agitated, anxious Focused psych exam: ABSENT: pressured speech Skin exam: ABSENT: jaundice Results Laboratory Results: 04/05/20 14:20 04/05/20 14:20 04/05/20 04/05/20 04/05/20 14:20 14: 14:20 WBC 5.8 RBC 4.59 Hgb 12.8 L Hct 39.5 MCV 86 MCH 27.8 MCHC 32.3 RDW 17.7 H Plt Count 118 L Seg Neutrophils % 70.5 Carbonic Acid HCO3/H2CO3 Ratio ABG pH ABG pCO2 ABG pO2 ABG HCO3 ABG O2 Saturation ABG Base Excess VBG pH 7.33 VBG pCO2 40.6 VBG HCO3 20.7 VBG Base Excess -4.9 FiO2 Sodium 136.8 L Potassium 4.7 Chloride 103 Carbon Dioxide 20 L Anion Gap 14 BUN 21 H Creatinine 1.25 Est GFR ( Amer) > 60 Glucose 130 H Lactic Acid Calcium 8.6 Total Bilirubin 0.5 AST 21 Alkaline Phosphatase 80 Total Protein 6.1 L Albumin 3.5 04/05/20 04/05/20 04/05/20 14:20 14:42 16:30 WBC RBC Hgb Hct MCV MCH MCHC RDW Plt Count Seg Neutrophils % Carbonic Acid 1.11 HCO3/H2CO3 Ratio 18:1 ABG pH 7.35 ABG pCO2 36.8 ABG pO2 70.9 L ABG HCO3 20.0 ABG O2 Saturation 93.7 L ABG Base Excess -5.0 VBG pH VBG pCO2 VBG HCO3 VBG Base Excess FiO2 15L Sodium Potassium Chloride Carbon Dioxide Anion Gap BUN Creatinine Est GFR ( Amer) Glucose Lactic Acid 5.2 H 2.4 H Calcium Total Bilirubin AST Alkaline Phosphatase Total Protein Albumin 04/05/20 14:20 Troponin I 0.016 NT-Pro-B Natriuret Pep 7020 H Impressions: Chest X-Ray 04/05/20 00:00 IMPRESSION: CHRONIC PULMONARY FIBROSIS. NO SIGNIFICANT CHANGE. NO APPARENT ACUTE FINDINGS. Chest/Abdomen CTA 04/05/20 15:21 IMPRESSION: End-stage appearance of obstructive lung disease and pulmonary fibrosis 5 cm and 2 cm opacities in the left upper lobe, worrisome for acute pneumonia. The should be followed to radiographic clearing, to exclude underlying mass No CT angio evidence of acute pulmonary emboli or thoracic aortic dissection Assessment and Plan - Diagnosis (1) Acute and chronic respiratory failure with hypoxia Is this a current diagnosis for this admission?: Yes Plan: I believe patient's hypoxia is likely secondary to progressive end-stage emphysema and progression of pulmonary fibrosis. May have a mild COPD exacerbation but currently no wheezing on my exam but was noted to be wheezing in the ER. Will empirically treat COPD exacerbation. CTA of the chest shows dense opacity in his left lung 2 cm and 5 cm-I do not believe this to be a pneumonia especially given the lack of leukocytosis, density of lesion and absence of fever. This finding may actually represent malignancy which I discussed with patient. Will place on Oxymizer for now. If no improvement, will try Venturi mask. (2) COPD exacerbation Is this a current diagnosis for this admission?: Yes Plan: CAT scan shows advanced emphysema. Will treat for potential overlying exacerbation. Duo nebs every 6 hours. Solu-Medrol. Levaquin. Flonase to treat rhinosinusitis. (3) Pulmonary fibrosis Is this a current diagnosis for this admission?: Yes Plan: CT scan shows evidence of severe honeycombing involving a good amount of the lungs. Likely has advanced IPF. Oxygen supplementation as needed. (4) History of diabetes mellitus Is this a current diagnosis for this admission?: Yes Plan: History of DM but states he was told to stop taking metformin which he still takes. Will check hemoglobin A1c to see if his diabetes is truly resolved. In the meantime placed on Accu-Cheks and sliding scale insulin. (5) Lactic acidosis Is this a current diagnosis for this admission?: Yes Plan: Secondary to chronic hypoxia and acute COPD exacerbation. Will treat hypoxia and COPD exacerbation and check lactic acid in the a.m. - Time Time Spent with patient: 35 or more minutes
--- NOTE | 2020-04-05 18:45 | ADVANCED CARE ---
- Diagnosis (1) Acute and chronic respiratory failure with hypoxia Diagnosis Current: Yes (2) COPD exacerbation Diagnosis Current: Yes (3) Pulmonary fibrosis Diagnosis Current: Yes Attendance: Patient to myself Resuscitation Status: Do Not Resuscitate - DNR/DNI Discussion: Thoroughly discussed patient's chronic advanced COPD and IPF. Discussed the irreversibility of his conditions and how he is worsening hypoxia may simply be due to progression of this disease. Discussed what to do in case his hypoxia should worsen and patient declines intubation. Patient also wants to be a strict DNR/DNI. Discussed palliative care as well as hospice and patient states he would like us to try to treat what ever we can and if it does not improve his symptoms, then he will be very much open to revisiting hospice/palliative care. Time Spent: 20mins
[2020-04-05] MEDS: IPRATROPIUM/ALBUTEROL 0.5-2.5 MG/3 ML AMPUL NEB SCH (19:45)
[2020-04-05] MEDS: LEVOFLOXACIN 500 MG TABLET PO SCH (20:20)
[2020-04-05] MEDS ORDERED: INSULIN LISPRO 100 UNIT/ML 3 ML VIAL SUBCUT SCH (22:00)
[2020-04-05] MEDS: HEPARIN SOD (PORCINE) 5,000 UNIT/ML 1 ML VIAL SUBCUT SCH (22:32)
[2020-04-05] MEDS ORDERED: FLUTICASONE NASAL SPRAY 50 MCG/SPRY 120 SPRAY/16 GM ONE (22:40)
[2020-04-06] MEDS: IPRATROPIUM/ALBUTEROL 0.5-2.5 MG/3 ML AMPUL NEB SCH ×4 (02:09→20:33)
[2020-04-06 05:55] LABS: ABSOLUTE LYMPHOCYTES (AUTO) 0.8 10^3/uL (0.5-4.7); ABSOLUTE MONOCYTES (AUTO) 0.3 10^3/uL (0.1-1.4); ABSOLUTE NEUT (AUTO) 4.5 10^3/uL (1.7-8.2); BASOPHILS % (AUTO) 0.1 % (0-2); HEMATOCRIT 38.9 % (37.9-51.0); LYMPHOCYTES % (AUTO) 14.3 % (13-45); MEAN CORPUSCULAR HEMOGLOBIN 28.2 pg (27.0-33.4); MEAN CORPUSCULAR HGB CONC 33.3 g/dL (32.0-36.0); MEAN CORPUSCULAR VOLUME 85 fl (80-97); MONOCYTES % (AUTO) 4.6 % (3-13); PLATELET COUNT 116 10^3/uL (150-450); RED BLOOD COUNT 4.61 10^6/uL (4.35-5.55); RED CELL DISTRIBUTION WIDTH 17.5 % (11.5-14.0); TOTAL CELLS COUNTED % (AUTO) 100 %; WHITE BLOOD COUNT 5.5 10^3/uL (4.0-10.5)
[2020-04-06 06:14] LABS: ANION GAP 12 (5-19); BLOOD UREA NITROGEN 21 mg/dL (7-20); CARBON DIOXIDE 21 mmol/L (22-30); CHLORIDE 102 mmol/L (98-107); GLUCOSE 103 mg/dL (75-110); PHOSPHORUS 3.8 mg/dL (2.5-4.5); POTASSIUM 5.2 mmol/L (3.6-5.0)
[2020-04-06] MEDS: FLUTICASONE NASAL SPRAY 50 MCG/SPRY 120 SPRAY/16 GM NASL SCH ×4 (07:12→22:41)
[2020-04-06] MEDS: HEPARIN SOD (PORCINE) 5,000 UNIT/ML 1 ML VIAL SUBCUT SCH ×3 (07:34→22:42)
[2020-04-06] MEDS ORDERED: FUROSEMIDE INJ/PF 40 MG/4 ML SDV IV ONE (08:30)
[2020-04-06 10:15] LABS: APPEARANCE,URINE CLEAR; BILIRUBIN,URINE NEGATIVE (NEGATIVE); COLOR,URINE YELLOW; GLUCOSE, URINE NEGATIVE (NEGATIVE); KETONES,URINE NEGATIVE (NEGATIVE); LEUKOCYTE ESTERASE,URINE NEGATIVE (NEGATIVE); NITRITE,URINE NEGATIVE (NEGATIVE); PROTEIN,URINE NEGATIVE (NEGATIVE); URINE SPECIFIC GRAVITY 1.013; UROBILINOGEN,URINE NEGATIVE mg/dL (<2.0)
[2020-04-06] MEDS: METHYLPREDNISOLONE INJ 40 MG/1 ML SDV IV SCH ×2 (11:12→22:42)
[2020-04-06] MEDS: FLUTICASONE/UMECLIDIN/VILANTER 100-62.5-25 MCG/DOSE IH SCH (11:13)
[2020-04-06] MEDS: LEVOFLOXACIN 500 MG TABLET PO SCH (11:13)
[2020-04-06] MEDS: RAMIPRIL 10 MG CAPSULE PO SCH ×2 (11:13→17:41)
[2020-04-06] MEDS: ASPIRIN 81 MG TABLET, ENT COATED PO SCH (11:13)
--- NOTE | 2020-04-06 17:18 | PDOC PROGRESS REPORT ---
Subjective Progress Note for:: 04/06/20 Subjective:: Patient denies any worsening of shortness of breath. States it is about the same. Has not tried to ambulate. Reason For Visit: HYPOXIA. COPD. ILD. Physical Exam Vital Signs: Temp Pulse Resp BP Pulse Ox 97.7 F 99 18 110/66 93 04/06/20 12:33 04/06/20 14:00 04/06/20 13:50 04/06/20 12:33 04/06/20 13:50 Intake & Output 04/05/20 04/06/20 04/07/20 06:59 06:59 06:59 Intake Total 510 476 Output Total 675 500 Balance -165 -24 Weight 74.8 kg General appearance: PRESENT: no acute distress, cooperative Neck exam: ABSENT: JVD Respiratory exam: PRESENT: crackles, symmetrical, unlabored. ABSENT: tachypnea, wheezes Cardiovascular exam: PRESENT: RRR, +S1, +S2. ABSENT: tachycardia GI/Abdominal exam: PRESENT: soft. ABSENT: rebound, rigid, tenderness Neurological exam: PRESENT: alert, awake, oriented to person, oriented to place, oriented to time Results Laboratory Results: 04/06/20 05:35 04/06/20 05:35 04/05/20 04/06/20 04/06/20 21:00 05:35 05:35 WBC 5.5 RBC 4.61 Hgb 13.0 L Hct 38.9 MCV 85 MCH 28.2 MCHC 33.3 RDW 17.5 H Plt Count 116 L Seg Neutrophils % 81.0 H Sodium 134.8 L Potassium 5.2 H Chloride 102 Carbon Dioxide 21 L Anion Gap 12 BUN 21 H Creatinine 1.19 Est GFR ( Amer) > 60 Glucose 103 Lactic Acid 1.1 Calcium 9.0 Phosphorus 3.8 Magnesium 2.1 Urine Color Urine Appearance Urine pH Ur Specific [place] Urine Protein Urine Glucose (UA) Urine Ketones Urine Blood Urine Nitrite Ur Leukocyte Esterase Urine WBC (Auto) Urine RBC (Auto) 04/06/20 04/06/20 05:35 09:50 WBC RBC Hgb Hct MCV MCH MCHC RDW Plt Count Seg Neutrophils % Sodium Potassium Chloride Carbon Dioxide Anion Gap BUN Creatinine Est GFR ( Amer) Glucose Lactic Acid 1.0 Calcium Phosphorus Magnesium Urine Color YELLOW Urine Appearance CLEAR Urine pH 5.0 Ur Specific [place] 1.013 Urine Protein NEGATIVE Urine Glucose (UA) NEGATIVE Urine Ketones NEGATIVE Urine Blood NEGATIVE Urine Nitrite NEGATIVE Ur Leukocyte Esterase NEGATIVE Urine WBC (Auto) 2 Urine RBC (Auto) 11 04/05/20 14:20 Troponin I 0.016 NT-Pro-B Natriuret Pep 7020 H Impressions: Chest X-Ray 04/05/20 00:00 IMPRESSION: CHRONIC PULMONARY FIBROSIS. NO SIGNIFICANT CHANGE. NO APPARENT ACUTE FINDINGS. Chest/Abdomen CTA 04/05/20 15:21 IMPRESSION: End-stage appearance of obstructive lung disease and pulmonary fibrosis 5 cm and 2 cm opacities in the left upper lobe, worrisome for acute pneumonia. The should be followed to radiographic clearing, to exclude underlying mass No CT angio evidence of acute pulmonary emboli or thoracic aortic dissection Assessment and Plan - Diagnosis (1) Acute and chronic respiratory failure with hypoxia Is this a current diagnosis for this admission?: Yes Plan: I believe patient's hypoxia is likely secondary to progressive end-stage emphysema and progression of pulmonary fibrosis. May have a mild COPD exace rbation but currently no wheezing on my exam but was noted to be wheezing in the ER. Will empirically treat COPD exacerbation. CTA of the chest shows dense opacity in his left lung 2 cm and 5 cm-I do not believe this to be a pneumonia especially given the lack of leukocytosis, density of lesion and absence of fever. This finding may actually represent malignancy which I discussed with patient. Currently on simple facemask at 4 L Also given a dose of Lasix today (2) COPD exacerbation Is this a current diagnosis for this admission?: Yes Plan: CAT scan shows advanced emphysema. Will treat for potential overlying exacerbation. Duo nebs every 6 hours. Solu-Medrol. Levaquin. Flonase to treat rhinosinusitis. (3) Pulmonary fibrosis Is this a current diagnosis for this admission?: Yes Plan: CT scan shows evidence of severe honeycombing involving a good amount of the lungs. Likely has advanced IPF. Oxygen supplementation as needed. (4) History of diabetes mellitus Is this a current diagnosis for this admission?: Yes Plan: History of DM but states he was told to stop taking metformin which he still takes. Hemoglobin A1c seems to have normalized. No need for anti-glycemic age nts at this time. (5) Lactic acidosis Is this a current diagnosis for this admission?: Yes Plan: Secondary to chronic hypoxia and acute COPD exacerbation. Repeat blood work shows the lactic acidosis currently resolved with treatment of hypoxia and COPD. - Time Time Spent with patient: Less than 15 minutes
[2020-04-06] MEDS: SIMVASTATIN 40 MG TABLET PO SCH (17:41)
[2020-04-06] MEDS: FINASTERIDE 5 MG TABLET PO SCH (22:43)
[2020-04-06] MEDS: TAMSULOSIN HCL 0.4 MG CAP.SR.24H PO SCH (22:43)
[2020-04-06] MEDS: BUPROPION HCL 75 MG TABLET PO SCH (22:43)
[2020-04-07] MEDS ORDERED: HYDRALAZINE HCL INJ/PF 20 MG/1 ML SDV IV PRN (01:15)
[2020-04-07] MEDS: IPRATROPIUM/ALBUTEROL 0.5-2.5 MG/3 ML AMPUL NEB SCH ×4 (02:12→20:30)
[2020-04-07 06:07] LABS: ABSOLUTE LYMPHOCYTES (AUTO) 0.5 10^3/uL (0.5-4.7); ABSOLUTE MONOCYTES (AUTO) 0.2 10^3/uL (0.1-1.4); ABSOLUTE NEUT (AUTO) 7.3 10^3/uL (1.7-8.2); BASOPHILS % (AUTO) 0.1 % (0-2); HEMATOCRIT 43.6 % (37.9-51.0); HEMOGLOBIN 14.3 g/dL (13.5-17.0); LYMPHOCYTES % (AUTO) 6.3 % (13-45); MEAN CORPUSCULAR HEMOGLOBIN 27.8 pg (27.0-33.4); MEAN CORPUSCULAR HGB CONC 32.8 g/dL (32.0-36.0); MEAN CORPUSCULAR VOLUME 85 fl (80-97); MONOCYTES % (AUTO) 2.2 % (3-13); PLATELET COUNT 129 10^3/uL (150-450); RED BLOOD COUNT 5.14 10^6/uL (4.35-5.55); RED CELL DISTRIBUTION WIDTH 17.9 % (11.5-14.0); SEGMENTED NEUTROPHILS % (AUTO) 91.4 % (42-78); TOTAL CELLS COUNTED % (AUTO) 100 %
[2020-04-07 06:28] LABS: ANION GAP 11 (5-19); BLOOD UREA NITROGEN 28 mg/dL (7-20); CALCIUM 9.3 mg/dL (8.4-10.2); CARBON DIOXIDE 24 mmol/L (22-30); CHLORIDE 102 mmol/L (98-107); GLUCOSE 142 mg/dL (75-110); POTASSIUM 4.9 mmol/L (3.6-5.0)
[2020-04-07] MEDS: HEPARIN SOD (PORCINE) 5,000 UNIT/ML 1 ML VIAL SUBCUT SCH ×3 (06:59→22:50)
[2020-04-07] MEDS: FLUTICASONE/UMECLIDIN/VILANTER 100-62.5-25 MCG/DOSE IH SCH (10:10)
[2020-04-07] MEDS ORDERED: ERGOCALCIFEROL (VITAMIN D2) 50000 UNIT (1.25 MG) CAPSULE PO SCH (10:11)
[2020-04-07] MEDS: ASPIRIN 81 MG TABLET, ENT COATED PO SCH (10:11)
[2020-04-07] MEDS: FLUTICASONE NASAL SPRAY 50 MCG/SPRY 120 SPRAY/16 GM NASL SCH ×2 (10:11→22:50)
[2020-04-07] MEDS: METHYLPREDNISOLONE INJ 40 MG/1 ML SDV IV SCH (10:11)
[2020-04-07] MEDS: RAMIPRIL 10 MG CAPSULE PO SCH ×2 (10:11→17:40)
[2020-04-07] MEDS: LEVOFLOXACIN 500 MG TABLET PO SCH (10:11)
[2020-04-07] MEDS: BUPROPION HCL 75 MG TABLET PO SCH ×2 (10:11→22:49)
--- NOTE | 2020-04-07 12:07 | PDOC PROGRESS REPORT ---
Subjective Progress Note for:: 04/07/20 Subjective:: Patient is comfortable at rest but still gets short of breath when he ambulates even just to the bathroom. He states that he is fully aware that he needs to start making end-of-life plans in order given his end-stage COPD and end-stage pulmonary fibrosis. States that he called his brother today to discuss issues. Otherwise has no complaints at this time. Reason For Visit: HYPOXIA. COPD. ILD. Physical Exam Vital Signs: Temp Pulse Resp BP Pulse Ox 97.4 F 91 16 143/89 H 98 04/07/20 07:40 04/07/20 08:44 04/07/20 08:44 04/07/20 07:40 04/07/20 08:44 Intake & Output 04/06/20 04/07/20 04/08/20 06:59 06:59 06:59 Intake Total 510 1316 Output Total 675 1900 Balance -165 -584 Weight 74.8 kg 71.7 kg General appearance: PRESENT: no acute distress, cooperative Neck exam: ABSENT: JVD Respiratory exam: PRESENT: crackles, decreased breath sounds, unlabored. ABSENT: tachypnea, wheezes Cardiovascular exam: PRESENT: RRR, +S1, +S2. ABSENT: tachycardia GI/Abdominal exam: PRESENT: soft. ABSENT: rebound, rigid, tenderness Extremities exam: ABSENT: pedal edema, +1 edema, +2 edema Neurological exam: PRESENT: alert, awake, oriented to person, oriented to place, oriented to time Results Laboratory Results: 04/07/20 05:52 04/07/20 05:52 04/07/20 04/07/20 05:52 05:52 WBC 8.0 RBC 5.14 Hgb 14.3 Hct 43.6 MCV 85 MCH 27.8 MCHC 32.8 RDW 17.9 H Plt Count 129 L Seg Neutrophils % 91.4 H Sodium 137.0 Potassium 4.9 Chloride 102 Carbon Dioxide 24 Anion Gap 11 BUN 28 H Creatinine 1.33 H Est GFR ( Amer) > 60 Glucose 142 H Calcium 9.3 04/05/20 14:20 Troponin I 0.016 NT-Pro-B Natriuret Pep 7020 H Impressions: Chest X-Ray 04/05/20 00:00 IMPRESSION: CHRONIC PULMONARY FIBROSIS. NO SIGNIFICANT CHANGE. NO APPARENT ACUTE FINDINGS. Chest/Abdomen CTA 04/05/20 15:21 IMPRESSION: End-stage appearance of obstructive lung disease and pulmonary fibrosis 5 cm and 2 cm opacities in the left upper lobe, worrisome for acute pneumonia. The should be followed to radiographic clearing, to exclude underlying mass No CT angio evidence of acute pulmonary emboli or thoracic aortic dissection Assessment and Plan - Diagnosis (1) Acute and chronic respiratory failure with hypoxia Is this a current diagnosis for this admission?: Yes Plan: I believe patient's hypoxia is likely secondary to progressive end-stage Emphysema and advanced pulmonary fibrosis. May have a mild COPD exacerbation but never wheezing on my exam but was noted to be wheezing in the ER. CTA of the chest shows dense opacity in his left lung 2 cm and 5 cm- I do not believe this to be a pneumonia especially given the lack of leukocytosis, density of lesion and absence of fever. This finding may actually represent malignancy which I discussed with patient but will hold off on pursuing tissue sample at this time. Patient is able to tolerate 5 L nasal cannula today. We will continue to treat for COPD exacerbation, trial of Lasix and perform ambulatory pulse oximeter today. If patient's ambulatory pulse ox can persist above 88% on 4-6L NC with s hort distance ambulation, will plan for discharge with palliative care. Palliative care consult placed. (2) COPD exacerbation Is this a current diagnosis for this admission?: Yes Plan: CAT scan shows advanced emphysema. Will treat for potential overlying exacerbation. Duo nebs every 6 hours. Change from Solu-Medrol to prednisone. Levaquin. Flonase to treat rhinosinusitis. LABA/LAMA/ICS. (3) Pulmonary fibrosis Is this a current diagnosis for this admission?: Yes Plan: CT scan shows evidence of severe honeycombing involving a good amount of the lungs. Likely has advanced IPF. Oxygen supplementation as needed. (4) Elevated brain natriuretic peptide (BNP) level Is this a current diagnosis for this admission?: Yes Plan: Does not examine as decompensated heart failure and interstitial opacities on CAT scan are secondary to IPF. However, patient may have some underlying type 3 pulmonary hypertension secondary to advanced lung diseases. We will try some Lasix today and but ultimately treatment will be oxygen. No evidence of CO2 retention on abg. Outpatient pulmonary follow-up. (5) History of diabetes mellitus Is this a current diagnosis for this admission?: Yes Plan: History of DM but states he was told to stop taking metformin which he still takes. Hemoglobin A1c seems to have normalized. No need for anti-glycemic agents at this time. (6) Lactic acidosis Is this a current diagnosis for this admission?: Yes Plan: Secondary to chronic hypoxia and acute COPD exacerbation. Repeat blood work shows resolution of lactic acidosis. - Time Time Spent with patient: Less than 15 minutes
[2020-04-07] MEDS ORDERED: FUROSEMIDE INJ/PF 40 MG/4 ML SDV IV ONE (12:15)
[2020-04-07] MEDS: SIMVASTATIN 40 MG TABLET PO SCH (17:40)
[2020-04-07] MEDS: TAMSULOSIN HCL 0.4 MG CAP.SR.24H PO SCH (22:50)
[2020-04-07] MEDS: FINASTERIDE 5 MG TABLET PO SCH (22:50)
[2020-04-08] MEDS: IPRATROPIUM/ALBUTEROL 0.5-2.5 MG/3 ML AMPUL NEB SCH ×4 (02:32→20:17)
[2020-04-08] MEDS: HEPARIN SOD (PORCINE) 5,000 UNIT/ML 1 ML VIAL SUBCUT SCH ×3 (05:50→22:44)
[2020-04-08 06:32] LABS: ABSOLUTE LYMPHOCYTES (AUTO) 1.9 10^3/uL (0.5-4.7); ABSOLUTE NEUT (AUTO) 8.9 10^3/uL (1.7-8.2); BASOPHILS % (AUTO) 0.2 % (0-2); EOSINOPHILS % (AUTO) 0.2 % (0-6); HEMATOCRIT 42.7 % (37.9-51.0); LYMPHOCYTES % (AUTO) 15.8 % (13-45); MEAN CORPUSCULAR HEMOGLOBIN 27.9 pg (27.0-33.4); MEAN CORPUSCULAR HGB CONC 32.9 g/dL (32.0-36.0); MEAN CORPUSCULAR VOLUME 85 fl (80-97); MONOCYTES % (AUTO) 8.1 % (3-13); PLATELET COUNT 139 10^3/uL (150-450); RED BLOOD COUNT 5.03 10^6/uL (4.35-5.55); RED CELL DISTRIBUTION WIDTH 17.8 % (11.5-14.0); SEGMENTED NEUTROPHILS % (AUTO) 75.7 % (42-78); TOTAL CELLS COUNTED % (AUTO) 100 %; WHITE BLOOD COUNT 11.8 10^3/uL (4.0-10.5)
[2020-04-08 06:44] LABS: ANION GAP 11 (5-19); BLOOD UREA NITROGEN 42 mg/dL (7-20); CARBON DIOXIDE 26 mmol/L (22-30); CHLORIDE 100 mmol/L (98-107); GLUCOSE 82 mg/dL (75-110); POTASSIUM 5.2 mmol/L (3.6-5.0)
[2020-04-08] MEDS: PREDNISONE 20 MG TABLET PO SCH (09:52)
[2020-04-08] MEDS: FLUTICASONE NASAL SPRAY 50 MCG/SPRY 120 SPRAY/16 GM NASL SCH ×2 (09:54→22:43)
[2020-04-08] MEDS: FLUTICASONE/UMECLIDIN/VILANTER 100-62.5-25 MCG/DOSE IH SCH (09:55)
[2020-04-08] MEDS: BUPROPION HCL 75 MG TABLET PO SCH ×2 (09:55→22:44)
[2020-04-08] MEDS: ASPIRIN 81 MG TABLET, ENT COATED PO SCH (09:55)
[2020-04-08] MEDS: RAMIPRIL 10 MG CAPSULE PO SCH ×2 (09:55→17:08)
[2020-04-08] MEDS: LEVOFLOXACIN 500 MG TABLET PO SCH (09:55)
--- NOTE | 2020-04-08 11:56 | PDOC PROGRESS REPORT ---
Subjective Progress Note for:: 04/08/20 Reason For Visit: HYPOXIA. COPD. ILD. 04/08/2020 Patient was admitted for shortness of breath, end-stage COPD, end-stage pulmonary fibrosis, oxygen dependency Physical Exam Vital Signs: Temp Pulse Resp BP Pulse Ox 97.2 F 90 18 141/79 H 94 04/08/20 05:03 04/08/20 08:52 04/08/20 08:52 04/08/20 05:03 04/08/20 08:52 Intake & Output 04/07/20 04/08/20 04/09/20 06:59 06:59 06:59 Intake Total 1316 1192 Output Total 1900 2360 Balance -584 -1168 Weight 71.7 kg 71.1 kg General appearance: PRESENT: no acute distress Respiratory exam: PRESENT: decreased breath sounds Cardiovascular exam: PRESENT: RRR. ABSENT: diastolic murmur, rubs, systolic murmur Neurological exam: PRESENT: alert, awake, oriented to person, oriented to place, oriented to time, oriented to situation, CN II-XII grossly intact. ABSENT: motor sensory deficit Psychiatric exam: PRESENT: appropriate affect, normal mood, other - Pleasant good historian. ABSENT: homicidal ideation, suicidal ideation Results Laboratory Results: 04/08/20 05:41 04/08/20 05:41 04/08/20 04/08/20 05:41 05:41 WBC 11.8 H RBC 5.03 Hgb 14.0 Hct 42.7 MCV 85 MCH 27.9 MCHC 32.9 RDW 17.8 H Plt Count 139 L Seg Neutrophils % 75.7 Sodium 136.9 L Potassium 5.2 H Chloride 100 Carbon Dioxide 26 Anion Gap 11 BUN 42 H Creatinine 1.61 H Est GFR ( Amer) 51 L Glucose 82 Calcium 9.0 04/05/20 14:20 Troponin I 0.016 NT-Pro-B Natriuret Pep 7020 H Impressions: Chest X-Ray 04/05/20 00:00 IMPRESSION: CHRONIC PULMONARY FIBROSIS. NO SIGNIFICANT CHANGE. NO APPARENT ACUTE FINDINGS. Chest/Abdomen CTA 04/05/20 15:21 IMPRESSION: End-stage appearance of obstructive lung disease and pulmonary fibrosis 5 cm and 2 cm opacities in the left upper lobe, worrisome for acute pneumonia. The should be followed to radiographic clearing, to exclude underlying mass No CT angio evidence of acute pulmonary emboli or thoracic aortic dissection Assessment and Plan - Diagnosis (1) End stage COPD Is this a current diagnosis for this admission?: Yes (2) End-stage pulmonary fibrosis Is this a current diagnosis for this admission?: Yes (3) Acute and chronic respiratory failure with hypoxia Is this a current diagnosis for this admission?: Yes (4) COPD exacerbation Is this a current diagnosis for this admission?: Yes (5) History of diabetes mellitus Is this a current diagnosis for this admission?: Yes (6) Lactic acidosis Is this a current diagnosis for this admission?: Yes (7) Pulmonary fibrosis Is this a current diagnosis for this admission?: Yes (8) Shortness of breath Is this a current diagnosis for this admission?: Yes - Plan Summary Summary: 04/08/2020 Patient moved up here from [place] about 1 year ago. Patient has oxygen at home that he uses at night. Patient did have a area director of home health sales when he lived in [place] but does not have one in [place]. Patient has requested a nebulizer machine at home as well as a front wheeled walker. Patient is much less short of breath now than on admission. Patient has requested that we fill out a DNR form this is been discussed with his son Patient request to be discharged home on the . Palliative care consult has been placed. Temperature 97.2 patient has been afebrile his entire hospitalization Pulse of 90 blood pressure 141/79 Oxygen saturation between 94 to 100% on 4 to 6 L nasal cannula Patient does use oxygen at home Patient should be done with 7 days of Levaquin on the patient will need to go home on a Medrol Dosepak, and nebulizer albuterol Orders written for discharge planning - Time Time Spent with patient: 25-34 minutes
[2020-04-08] MEDS: SIMVASTATIN 40 MG TABLET PO SCH (17:08)
[2020-04-08] MEDS: FINASTERIDE 5 MG TABLET PO SCH (22:43)
[2020-04-08] MEDS: TAMSULOSIN HCL 0.4 MG CAP.SR.24H PO SCH (22:44)
[2020-04-09] MEDS: IPRATROPIUM/ALBUTEROL 0.5-2.5 MG/3 ML AMPUL NEB SCH ×4 (02:53→19:59)
[2020-04-09] MEDS: HEPARIN SOD (PORCINE) 5,000 UNIT/ML 1 ML VIAL SUBCUT SCH ×3 (06:36→23:04)
[2020-04-09] MEDS: FLUTICASONE/UMECLIDIN/VILANTER 100-62.5-25 MCG/DOSE IH SCH (09:07)
[2020-04-09] MEDS: LEVOFLOXACIN 500 MG TABLET PO SCH (09:08)
[2020-04-09] MEDS: FLUTICASONE NASAL SPRAY 50 MCG/SPRY 120 SPRAY/16 GM NASL SCH ×2 (09:08→23:04)
[2020-04-09] MEDS: PREDNISONE 20 MG TABLET PO SCH (09:08)
[2020-04-09] MEDS: RAMIPRIL 10 MG CAPSULE PO SCH ×2 (09:08→17:59)
[2020-04-09] MEDS: BUPROPION HCL 75 MG TABLET PO SCH ×2 (09:08→23:03)
[2020-04-09] MEDS: ASPIRIN 81 MG TABLET, ENT COATED PO SCH (09:08)
--- NOTE | 2020-04-09 13:30 | PDOC PROGRESS REPORT ---
Subjective Progress Note for:: 04/09/20 Reason For Visit: HYPOXIA. COPD. ILD. 04/09/2020 Shortness of breath, end-stage COPD, end-stage pulmonary fibrosis, oxygen dependency Physical Exam Vital Signs: Temp Pulse Resp BP Pulse Ox 97.1 F 95 18 117/53 L 96 04/09/20 12:04 04/09/20 12:04 04/09/20 12:04 04/09/20 12:04 04/09/20 12:04 Intake & Output 04/08/20 04/09/20 04/10/20 06:59 06:59 06:59 Intake Total 1192 4444 750 Output Total 2360 3100 Balance -1168 1344 750 Weight 71.1 kg 70.8 kg General appearance: PRESENT: no acute distress Respiratory exam: PRESENT: decreased breath sounds, wheezes Cardiovascular exam: PRESENT: RRR. ABSENT: diastolic murmur, rubs, systolic murmur Neurological exam: PRESENT: alert, awake, oriented to person, oriented to place, oriented to time, oriented to situation, CN II-XII grossly intact. ABSENT: motor sensory deficit Psychiatric exam: PRESENT: appropriate affect, normal mood. ABSENT: homicidal ideation, suicidal ideation Results Laboratory Results: 04/08/20 05:41 04/08/20 05:41 04/06/20 11:22 Sputum Gram Stain - Final 04/06/20 11:22 Sputum Sputum Culture - Final NORMAL REMIGIO 04/05/20 14:20 Troponin I 0.016 NT-Pro-B Natriuret Pep 7020 H Impressions: Chest X-Ray 04/05/20 00:00 IMPRESSION: CHRONIC PULMONARY FIBROSIS. NO SIGNIFICANT CHANGE. NO APPARENT ACUTE FINDINGS. Chest/Abdomen CTA 04/05/20 15:21 IMPRESSION: End-stage appearance of obstructive lung disease and pulmonary fibrosis 5 cm and 2 cm opacities in the left upper lobe, worrisome for acute pneumonia. The should be followed to radiographic clearing, to exclude underlying mass No CT angio evidence of acute pulmonary emboli or thoracic aortic dissection Assessment and Plan - Diagnosis (1) End stage COPD Is this a current diagnosis for this admission?: Yes (2) End-stage pulmonary fibrosis Is this a current diagnosis for this admission?: Yes (3) Acute and chronic respiratory failure with hypoxia Is this a current diagnosis for this admission?: Yes (4) COPD exacerbation Is this a current diagnosis for this admission?: Yes (5) History of diabetes mellitus Is this a current diagnosis for this admission?: Yes (6) Lactic acidosis Is this a current diagnosis for this admission?: Yes (7) Pulmonary fibrosis Is this a current diagnosis for this admission?: Yes (8) Shortness of breath Is this a current diagnosis for this admission?: Yes - Plan Summary Summary: 04/08/2020 Patient moved up here from [place] about 1 year ago. Patient has oxygen at home that he uses at night. Patient did have a marketing planning manager when he lived in [place] but does not have one in [place]. Patient has requested a nebulizer machine at home as well as a front wheeled walker. Patient is much less short of breath now than on admission. Patient has requested that we fill out a DNR form this is been discussed with his son Patient request to be discharged home on the . Palliative care consult has been placed. Temperature 97.2 patient has been afebrile his entire hospitalization Pulse of 90 blood pressure 141/79 Oxygen saturation between 94 to 100% on 4 to 6 L nasal cannula Patient does use oxygen at home Patient should be done with 7 days of Levaquin on the patient will need to go home on a Medrol Dosepak, and nebulizer albuterol Orders written for discharge planning 04/09/2020 Patient becomes hypoxic if he takes his oxygen off for any short period of time, any exertion without oxygen he becomes quite hypoxic low 80s upper 70s Patient's renal functions appear to be worsening he is on no IV fluids and taking in very little p.o.'s Blood cultures negative x72 hours Temperature 97.5 pulse 87 blood pressure 161/82, his average pressure is 140/80 Anticipate discharge tomorrow patient will have well care with nebulizer and walker. Patient already has home oxygen established Patient will be discharged on the above medications. I have watched patient work with physical therapy. Patient is quite debilitated due to his oxygen deficit - Time Time Spent with patient: 25-34 minutes
[2020-04-09] MEDS: SIMVASTATIN 40 MG TABLET PO SCH (17:59)
[2020-04-09] MEDS: TAMSULOSIN HCL 0.4 MG CAP.SR.24H PO SCH (23:03)
[2020-04-09] MEDS: FINASTERIDE 5 MG TABLET PO SCH (23:03)
[2020-04-10] MEDS: IPRATROPIUM/ALBUTEROL 0.5-2.5 MG/3 ML AMPUL NEB SCH ×2 (02:26→07:45)
[2020-04-10] MEDS: HEPARIN SOD (PORCINE) 5,000 UNIT/ML 1 ML VIAL SUBCUT SCH ×2 (06:08→13:05)
[2020-04-10] MEDS: FLUTICASONE/UMECLIDIN/VILANTER 100-62.5-25 MCG/DOSE IH SCH (09:19)
[2020-04-10] MEDS: PREDNISONE 20 MG TABLET PO SCH (09:19)
[2020-04-10] MEDS: FLUTICASONE NASAL SPRAY 50 MCG/SPRY 120 SPRAY/16 GM NASL SCH (09:19)
[2020-04-10] MEDS: RAMIPRIL 10 MG CAPSULE PO SCH (09:19)
[2020-04-10] MEDS: LEVOFLOXACIN 500 MG TABLET PO SCH (09:19)
[2020-04-10] MEDS: ASPIRIN 81 MG TABLET, ENT COATED PO SCH (09:19)
[2020-04-10] MEDS: BUPROPION HCL 75 MG TABLET PO SCH (09:19)
[2020-04-10 10:53] VITALS: BP 161/82
--- NOTE | 2020-04-10 16:58 | PDOC DISCHARGE SUMMARY ---
Impression - Admit/DC Date/PCP Admission Date/Primary Care Provider: 04/05/20 18:25 ЕКАТЕРИНА RIGGS MD Discharge Date: 04/10/20 - Discharge Diagnosis (1) End stage COPD Is this a current diagnosis for this admission?: Yes (2) End-stage pulmonary fibrosis Is this a current diagnosis for this admission?: Yes (3) Acute and chronic respiratory failure with hypoxia Is this a current diagnosis for this admission?: Yes (4) COPD exacerbation Is this a current diagnosis for this admission?: Yes (5) History of diabetes mellitus Is this a current diagnosis for this admission?: Yes (6) Lactic acidosis Is this a current diagnosis for this admission?: Yes (7) Pulmonary fibrosis Is this a current diagnosis for this admission?: Yes (8) Shortness of breath Is this a current diagnosis for this admission?: Yes - Assessment Summary: 04/08/2020 Patient moved up here from [place] about 1 year ago. Patient has oxygen at home that he uses at night. Patient did have a safety counselor when he lived in [place] but does not have one in [place]. Patient has requested a nebulizer machine at home as well as a front wheeled walker. Patient is much less short of breath now than on admission. Patient has requested that we fill out a DNR form this is been discussed with his son Patient request to be discharged home on the . Palliative care consult has been placed. Temperature 97.2 patient has been afebrile his entire hospitalization Pulse of 90 blood pressure 141/79 Oxygen saturation between 94 to 100% on 4 to 6 L nasal cannula Patient does use oxygen at home Patient should be done with 7 days of Levaquin on the patient will need to go home on a Medrol Dosepak, and nebulizer albuterol Orders written for discharge planning 04/09/2020 Patient becomes hypoxic if he takes his oxygen off for any short period of time, any exertion without oxygen he becomes quite hypoxic low 80s upper 70s Patient's renal functions appear to be worsening he is on no IV fluids and taking in very little p.o.'s Blood cultures negative x72 hours Temperature 97.5 pulse 87 blood pressure 161/82, his average pressure is 140/80 Anticipate discharge tomorrow patient will have well care with nebulizer and walker. Patient already has home oxygen established Patient will be discharged on the above medications. I have watched patient work with physical therapy. Patient is quite debilitated due to his oxygen deficit 04/10/2020 Patient discharged home today in stable condition. Diagnosis end-stage COPD end-stage pulmonary fibrosis oxygen dependency, shortness of breath, acute on chronic respiratory failure, diabetes, lactic acidosis. Patient sent out with a prescription for DuoNeb solution, Medrol Dosepak, Patient sent out with home health to establish walker with rollers in a nebulizer machine Follow-up with primary care within 5 to 7 days She is feeling significantly improved since being admitted Patient completed a course of Levaquin while in the hospital Patient did have a CTA of the chest which showed end-stage obstructive lung disease and pulmonary fibrosis as well as 5 cm and 2 cm opacities in the left upper lobe worrisome for acute pneumonia, not exclude underlying mass Patient was told to follow-up about this with his primary care provider. - Additional Information Resuscitation Status: Do Not Resuscitate - DNR/DNI Discharge Diet: Diabetic Discharge Activity: Balance Activity w/Rest Referrals: ЕКАТЕРИНА RIGGS MD [Primary Care Provider] - 04/22/20 11:30 am Prescriptions: Ipratropium/Albuterol Sulfate [Duoneb 3 ml Ampul] 3 ml NEB RTQ6 30 Days #120 vial.neb Methylprednisolone [Medrol Dosepack (4 mg/Tab) 21 Tab/Dosepak] 4 mg PO ASDIR PRN #21 tab.ds.pk PRN Reason: Home Medications: Aspirin [Ecotrin 81 mg EC Tablet] 81 mg PO QAM 04/06/20 Bupropion HCl [Bupropion HCl Sr] 150 mg PO BID 04/06/20 Ergocalciferol (Vitamin D2) [Drisdol 50,000 unit (1.25MG) Capsule] 50,000 unit PO MO 04/06/20 Finasteride [Proscar 5 mg Tablet] 5 mg PO QHS 04/06/20 Fluticasone/Umeclidin/Vilanter [Trelegy 100-62.5-25 Mcg Ellipta 14 Dose/Dpi] 1 puff IH QAM 04/06/20 Metformin HCl [Glucophage 500 mg Tablet] 500 mg PO QAM 04/06/20 Ramipril [Altace 10 mg Capsule] 10 mg PO BID 04/06/20 Simvastatin [Zocor 40 mg Tablet] 40 mg PO QPM 04/06/20 Tamsulosin HCl [Flomax 0.4 mg Cap.sr] 0.4 mg PO QHS 04/06/20 Acetaminophen [Tylenol 325 mg Tablet] 650 mg PO Q4HP PRN tablet 04/10/20 Ipratropium/Albuterol Sulfate [Duoneb 3 ml Ampul] 3 ml NEB RTQ6 30 Days #120 vial.neb 04/10/20 Mag Hydrox/Al Hydrox/Simeth [Maalox Plus Susp 30 Udcup] 15 ml PO Q6HP PRN udc 04/10/20 Methylprednisolone [Medrol Dosepack (4 mg/Tab) 21 Tab/Dosepak] 4 mg PO ASDIR PRN #21 tab.ds.pk 04/10/20 History of Present Illiness History of Present Illness: VISHNU CARDENAS is a 75 year old male Physical Exam Vital Signs: Temp Pulse Resp BP Pulse Ox 97.4 F 88 14 161/82 H 96 04/10/20 10:52 04/10/20 10:52 04/10/20 10:52 04/10/20 10:52 04/10/20 10:52 Intake & Output 04/09/20 04/10/20 04/11/20 06:59 06:59 06:59 Intake Total 44 1888 Output Total 3108 3845 Balance 1344 -587 Weight 70.8 kg 71.1 kg Results Laboratory Results: WBC 11.8 10^3/uL (4.0-10.5) H 04/08/20 05:41 RBC 5.03 10^6/uL (4.35-5.55) 04/08/20 05:41 Hgb 14.0 g/dL (13.5-17.0) 04/08/20 05:41 Hct 42.7 % (37.9-51.0) 04/08/20 05:41 MCV 85 fl (80-97) 04/08/20 05:41 MCH 27.9 pg (27.0-33.4) 04/08/20 05:41 MCHC 32.9 g/dL (32.0-36.0) 04/08/20 05:41 RDW 17.8 % (11.5-14.0) H 04/08/20 05:41 Plt Count 139 10^3/uL (150-450) L 04/08/20 05:41 Lymph % (Auto) 15.8 % (13-45) 04/08/20 05:41 [place] % (Auto) 8.1 % (3-13) 04/08/20 05:41 Eos % (Auto) 0.2 % (0-6) 04/08/20 05:41 Baso % (Auto) 0.2 % (0-2) 04/08/20 05:41 Absolute Neuts (auto) 8.9 10^3/uL (1.7-8.2) H 04/08/20 05:41 Absolute Lymphs (auto) 1.9 10^3/uL (0.5-4.7) 04/08/20 05:41 Absolute Monos (auto) 1.0 10^3/uL (0.1-1.4) 04/08/20 05:41 Absolute Eos (auto) 0.0 10^3/uL (0.0-0.6) 04/08/20 05:41 Absolute Basos (auto) 0.0 10^3/uL (0.0-0.2) 04/08/20 05:41 Seg Neutrophils % 75.7 % (42-78) 04/08/20 05:41 PT 13.7 SEC (11.4-15.4) 04/05/20 14:20 INR 1.05 04/05/20 14:20 Carbonic Acid 1.11 mmol/L (1.05-1.35) 04/05/20 14:42 HCO3/H2CO3 Ratio 18:1 04/05/20 14:42 ABG pH 7.35 (7.35-7.45) 04/05/20 14:42 ABG pCO2 36.8 mmHg (35-45) 04/05/20 14:42 ABG pO2 70.9 mmHg (80-100) L 04/05/20 14:42 ABG HCO3 20.0 mmol/L (20-24) 04/05/20 14:42 ABG Total CO2 21.1 mmol/L (23-27) L 04/05/20 14:42 ABG O2 Saturation 93.7 % (94-98) L 04/05/20 14:42 ABG Base Excess -5.0 mmol/L 04/05/20 14:42 VBG pH 7.33 (7.30-7.42) 04/05/20 14:20 VBG pCO2 40.6 mmHg (35-63) 04/05/20 14:20 VBG HCO3 20.7 mmol/L (20-32) 04/05/20 14:20 VBG Base Excess -4.9 mmol/L 04/05/20 14:20 FiO2 15L 04/05/20 14:42 Sodium 136.9 mmol/L (137-145) L 04/08/20 05:41 Potassium 5.2 mmol/L (3.6-5.0) H 04/08/20 05:41 Chloride 100 mmol/L (98-107) 04/08/20 05:41 Carbon Dioxide 26 mmol/L (22-30) 04/08/20 05:41 Anion Gap 11 (5-19) 04/08/20 05:41 BUN 42 mg/dL (7-20) H 04/08/20 05:41 Creatinine 1.61 mg/dL (0.52-1.25) H 04/08/20 05:41 Est GFR ( Amer) 51 (>60) L 04/08/20 05:41 Est GFR (MDRD) Non-Af 42 (>60) L 04/08/20 05:41 Glucose 82 mg/dL (75-110) 04/08/20 05:41 Hemoglobin A1c % 5.6 % (4.7-6.0) 04/06/20 05:35 Lactic Acid 1.0 mmol/L (0.7-2.1) 04/06/20 05:35 Calcium 9.0 mg/dL (8.4-10.2) 04/08/20 05:41 Phosphorus 3.8 mg/dL (2.5-4.5) 04/06/20 05:35 Magnesium 2.1 mg/dL (1.6-2.3) 04/06/20 05:35 Total Bilirubin 0.5 mg/dL (0.2-1.3) 04/05/20 14:20 Direct Bilirubin 0.0 mg/dL (0.0-0.4) 04/05/20 14:20 Neonat Total Bilirubin Not Reportable 04/05/20 14:20 Neonat Direct Bilirubin Not Reportable 04/05/20 14:20 Neonat Indirect Bili Not Reportable 04/05/20 14:20 AST 21 U/L (17-59) 04/05/20 14:20 ALT 30 U/L (<50) 04/05/20 14:20 Alkaline Phosphatase 80 U/L (38-126) 04/05/20 14:20 Troponin I 0.016 ng/mL 04/05/20 14:20 NT-Pro-B Natriuret Pep 7020 pg/mL (<450) H 04/05/20 14:20 Total Protein 6.1 g/dL (6.3-8.2) L 04/05/20 14:20 Albumin 3.5 g/dL (3.5-5.0) 04/05/20 14:20 Urine Color YELLOW 04/06/20 09:50 Urine Appearance CLEAR 04/06/20 09:50 Urine pH 5.0 (5.0-9.0) 04/06/20 09:50 Ur Specific [place] 1.013 04/06/20 09:50 Urine Protein NEGATIVE mg/dL (NEGATIVE) 04/06/20 09:50 Urine Glucose (UA) NEGATIVE mg/dL (NEGATIVE) 04/06/20 09:50 Urine Ketones NEGATIVE mg/dL (NEGATIVE) 04/06/20 09:50 Urine Blood NEGATIVE (NEGATIVE) 04/06/20 09:50 Urine Nitrite NEGATIVE (NEGATIVE) 04/06/20 09:50 Urine Bilirubin NEGATIVE (NEGATIVE) 04/06/20 09:50 Urine Urobilinogen NEGATIVE mg/dL (<2.0) 04/06/20 09:50 Ur Leukocyte Esterase NEGATIVE (NEGATIVE) 04/06/20 09:50 Urine WBC (Auto) 2 /HPF 04/06/20 09:50 Urine RBC (Auto) 11 /HPF 04/06/20 09:50 Squamous Epi Cells Auto <1 /HPF 04/06/20 09:50 Urine Mucus (Auto) RARE /LPF 04/06/20 09:50 Urine Yeast (Budding) PRESENT /HPF 04/06/20 09:50 Urine Ascorbic Acid NEGATIVE (NEGATIVE) 04/06/20 09:50 SARS-CoV-2 (PCR) NEGATIVE (NEGATIVE) 04/05/20 17:50 04/05/20 14:20 Troponin I 0.016 NT-Pro-B Natriuret Pep 7020 H Impressions: Chest X-Ray 04/05/20 00:00 IMPRESSION: CHRONIC PULMONARY FIBROSIS. NO SIGNIFICANT CHANGE. NO APPARENT ACUTE FINDINGS. Chest/Abdomen CTA 04/05/20 15:21 IMPRESSION: End-stage appearance of obstructive lung disease and pulmonary fibrosis 5 cm and 2 cm opacities in the left upper lobe, worrisome for acute pneumonia. The should be followed to radiographic clearing, to exclude underlying mass No CT angio evidence of acute pulmonary emboli or thoracic aortic dissection Stroke Is this a Stroke Patient?: No Acute Heart Failure - Is this a Heart Failure Patient?: No
== END 2020-04-10 14:01 | disposition home health service (06) | DRG 189 ==
LOC: ER 14:17 → EH 18:25 → 3W 23:04
PROVIDERS: ADMIT Internal Medicine; ATTEND Physician Assistant
DX: J96.21 Acute and chronic respiratory failure with hypoxia (principal); E10.10 Type 1 diabetes mellitus with ketoacidosis without coma; J84.10 Pulmonary fibrosis, unspecified; I10 Essential (primary) hypertension; E78.5 Hyperlipidemia, unspecified; F32.9 Major depressive disorder, single episode, unspecified; F14.11 Cocaine abuse, in remission; J43.9 Emphysema, unspecified; E78.00 Pure hypercholesterolemia, unspecified; Z66 Do not resuscitate; Z99.81 Dependence on supplemental oxygen; Z79.899 Other long term (current) drug therapy; Z79.84 Long term (current) use of oral hypoglycemic drugs; Z79.82 Long term (current) use of aspirin; Z87.891 Personal history of nicotine dependence; Z79.52 Long term (current) use of systemic steroids
CPT/HCPCS: 36415; 71045; 71275; 80048; 80053; 81001; 82803; 83036; 83605; 83735; 83880; 84100; 84484; 85025; 85610; 87040; 87070; 87205; 87635; 93005; 93010; 94640; 96365; 96366; 96367; 96368; 96375; 99285; J0360; J0456; J0696; J1644; J1940; J2920; J2930; J3475; J3490; J7512; J7620